=== PATIENT | female | born 1975 | race Caucasian/White ===

== ENCOUNTER 2022-05-27 09:30 | Outpatient (RCR) | payer OTHER, SELFPAY ==
[2022-05-25 10:49] VITALS: BP 110/78; PULSE 80; TEMP 37
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
--- NOTE | 2022-05-26 13:02 | PC.NURSE ---
Patient has a history of psychogenic seizures. She reportedly came out of the group as she did not want to be around others and was sitting at the kitchen table. Staff sat with her and walked with her to my office. Patient was clenching her hands and she was shaking her hands while seated in my office. She was able to make eye contact with me and was verbal. She appeared with increased anxiety and fearful with increased breathing. Lasted for about 5 minutes. Patient did not lose consciousness. Patient stated she was ok afterwards and went back to group. Breanna Aguilar NP, and program staff Ingrid were also in the room with the patient
--- NOTE | 2022-05-26 15:13 | PC.NURSE ---
Met with patient again r/t psychogenic seizure. She stated she is feeling better. I asked her if anyone could pick her up and give her a ride home. She stated there was no one who could drive her home and she felt fine to drive and wants to drive home. Stated she lives 5 minutes away. Stated she has been dealing with this for a long time. Continued to recommend she get a ride home however she did not want to do this. She stated she gets a warning prior to psychogenic seizure where her head feels like there is a heavy weight on it and feeling disconnected, and her hand will start to shake. She stated she feels like she is having a panic attack. I asked her to call us when she gets home. [facility] staff are aware including Universal Winding Machine Operator Breanna Lara NP, Mona Gomez, and Tanika Jesus, and Dr Sigala. Asked patient to call us when she got home. Patient called staff and let us know she was home.
--- NOTE | 2022-05-27 08:27 | PC.NURSE ---
Patient called [facility] staff this morning and stated because of the episode at the program yesterday she will be getting a ride to the program and will be here at 0930 today.
--- NOTE | 2022-05-27 14:46 | P.PNPSP_ITS ---
Subjective Subjective Date of Service: 05/27/22 Reason For Visit: SETH Guardianship: No Medical Problems Affecting Mental Status: Yes (psychogenic seizures) Interim History: Patient experienced seizure activity yesterday during program. Did not lose consciousness. Today describes her mood as ?I am okay today, but quiet ?. Continues with anxious affect. Reviewed most recent medication list that was sent from her outpatient provider. She reports that she takes the trazodone as needed, not daily for sleep. Takes the clonazepam 0.5 as needed, states that she takes it almost daily. Had not been consistent with the 500 mg daily of lamotrigine. Per advice of this fha underwriter, several days ago she resumed taking the medication, at 50 mg daily. She reports that although she had has been prescribed higher doses of BuSpar, she has been taking 10 mg b.i.d.. The it is that she is taking quetiapine 100 mg at bedtime. No SI, no safety concerns. Medication Compliance: Intermittent Side effects from medications: No Attending Groups: Yes Review of Systems Acute medical concerns: Yes Frequent psychogenic seizures. Medical Review of Systems: unchanged Review of Systems Review of Systems Yes all other systems are reviewed and are negative Constitutional: Reports no additional constitutional complaints Reports seizure-like activity (frequent) Mental Status Exam Mental Status Exam Narrative: NAD. No SI. Patient Appearance: Appropriate Patient Orientation: Person, Place, Time and Situation Level of Consciousness: Appropriate and Alert Patient Behavior: Appropriate, Cooperative and Poor Eye Contact (intermittent eye contact) Mood Description: Appropriate Affect Description: Depressed and Anxious Patient Cognition Impaired: No Ability to Follow Directions: Good Speech Pattern: Clear Memory Description: Intact Hallucinations: None Delusions: Not Present Thought Process: Intact Thought Content: positive for Intact Depressive Symptoms: Increased Anxiety, Crying Spells, Loss of Int. in Activity, Feelings of Guilt, Unhappiness, Increased Fatigue, Low Self Esteem and Difficulty Concentrating Judgement: Fair Diagnostics Vital Signs (24Hr): BMI result Body Mass Index 20.0 Assessment & Plan Assessment & Plan (1) Major depressive disorder, recurrent episode, moderate with mixed features: Status: Acute Code(s): F33.1 - Major depressive disorder, recurrent, moderate Assessment and Plan: Patient was advised to contact her outpatient psychiatrist/neurology person regarding titration of lamotrigine, as per outpatient provider notes, this medication has been prescribed due to seizure activity rather than psychiatric purposes. She states that she will do so. Reports that she is quiet today in groups, as she wants to listen. (2) Generalized anxiety disorder: Status: Acute Code(s): F41.1 - Generalized anxiety disorder (3) Alcohol dependence, uncomplicated: Status: Acute Code(s): F10.20 - Alcohol dependence, uncomplicated Plan 1. Continue with current [facility] plan of care. 2. Medication list updated in chart, as per patient report. 3. Follow-up as per protocol. 4. Due to seizure-like activity in program yesterday, a request for medical evaluation form will be sent to the V. Patient educated on: diagnosis, medication risk/benefits, substance abuse and therapeutic strategies Informed Consent: understands Reason for contiued partial hosp. stay Substantial Risk for: harm to self, inability to function, rapid decompensation and med/psych decompensation Certification I certify that partial hospital treatment is medically necessary due to the symptoms and problems resulting from the patient's mental illness and the failure to treat the patient at the partial hospital level of care would likely result in the patient requiring inpatient psychiatric care which could not be prevented at a less intensive level of care. Total time managing care of this patient today __20__ minutes. Discharge Plan Discharge Attending provider: Karl Sigala
--- NOTE | 2022-05-27 15:40 | HO.PHPIOP ---
case opened in treatment team
--- NOTE | 2022-05-30 08:51 | PC.NURSE ---
Denzel called and spoke to [facility] staff stating she was not able to come in today as she needs to attend to a situation.
--- NOTE | 2022-05-31 14:08 | HO.PHPIOP ---
The client called this morning and stated that she could not attend today or tomorrow because she has an appointment and a court date. I called and left a message in the afternoon for her to call me .
--- NOTE | 2022-06-01 16:12 | HO.PHPIOP ---
I called the client at [phone] and left a message regarding our policy of needing to be discharge and reassessed if a number of days are missed. I requested a return call and left my number.
== END 2022-05-27 23:59 | disposition home or self-care (01) ==
LOC: HO.PHPA 09:30
PROVIDERS: Visit Provider Psychiatry & Neurology Psychiatry
DX: F41.1 Generalized anxiety disorder (principal); F33.1 Major depressive disorder, recurrent, moderate; F10.20 Alcohol dependence, uncomplicated; Z79.899 Other long term (current) drug therapy
CPT/HCPCS: 90791; 90853

== ENCOUNTER 2025-04-13 19:35 | Emergency (ER) | payer OTHER, SELFPAY ==
--- OUTSIDE RECORDS SUMMARY | 2020-02-11 18:33 | XMS_ITS | Encounter Summary ---
Author Organization [facility] Address [address] [place] [address] Phone Care Team Providers Care Long Term Care Social Worker Name Role Phone Unknown, Unknown Primary Care Provider An hurtado Encounter Details Date Type Department Care Team (Late st Contact Info) Description 02/11/2020 7:33 PM EDT Hospital Encounter [facility] [address] [place] [address] Vicki Frankel CNP [address] [place] [address] Social History Tobacco Use Types Packs/Day Years Used Date Smoking Tobacco: Every Day Smokeless Tobacco: Never Alcohol Use Standard Drinks/Week Comments Yes 0 (1 standard drink = 0.6 oz pur e alcohol) occasionally Education Answer Date Recorded Are you interested in more education? Not on gayatri e 09/09/2022 Are you concerned about learning? Not on file 09/09/2022 No 09/09/2022 No 09/09/2022 Digital Access Answer Date Recorded No 10/08/2022 No 10/08/2022 No 10/08/2022 Reliable internet access at home? Not on file 10/08/2022 Device with a working camera? Not on file Comments Unknown Sex and Gender Information Value Date Recorded Sex Assigned at Not on file Legal Sex Female 7:12 PM EDT Gender Identity Not on file Sexual Orientation Not on file documented as of this encounter Plan of Treatment Not on file documented as of this encounter Procedures Procedure Name Priority Date/Time Associated Diagnosis Comments XR ORBITS SERIES Urgent/patient waiting 02/11/2020 7:54 PM EDT Facial injury, initial encounter documented in this encounter Results * XR Orbits Series (02/11/2020 7:54 PM EDT) Anatomical Region Laterality Modality Face Radiographic Candie ging 02/12/2020 9:09 AM EDT Impressions 02/12/2020 9:11 AM EDT No fracture is evident but the detail is poor. If there is ongoing clinical suspicion of an orbital fracture CT is recommended. POS [id number] Narrative 02/12/2020 9:11 AM EDT [address]' view is limited by rotation and the lateral orbital detail is further limited by overpenetration. No displaced fracture is apparent. The paranasal sinuses are clear. No opaque foreign bodies Procedure Note Zheng Hansen MD - 02/12/[address] view is limited by rotation and the lateral orbitaldetail is further limited by overpenetration. No displaced fracture is apparent. The paranasal sinuses are clear. No opaque foreign bodies IMPRESSION: No fracture is evident but the detail is poor. If there is ongoingclinical suspicion of an orbital fracture CT is recommended. POS [id number] Vicki Frankel POLYMERIZATION KETTLE OPERATOR IMG XR HEAD AND SHUNT SERIE S Final Result documented in this encounter Visit Diagnoses Not on filedocumented in this encounter Care Teams Long Term Care Social Worker Relationship Specialty Start Date End Date Unknown, Unknown, PCP - General 02/11/20 documented as of this encounter Additional Source Comments The information contained in this document represents components of the legal health record. It is not the complete legal health record.[facility]
--- OUTSIDE RECORDS SUMMARY | 2020-02-11 18:33 | XMS_ITS | Encounter Summary ---
Author Organization [facility] Address [address] [place] [address] Phone Care Team Providers Care Country Printer Name Role Phone Unknown, Unknown Primary Care Provider An hurtado Encounter Details Date Type Department Care Team (Late st Contact Info) Description 02/11/2020 7:33 PM EDT Hospital Encounter [facility] [address] [place] [address] Vicki Frankel CNP [address] [place] [phone] Social History Tobacco Use Types Packs/Day Years [...] Name Priority Date/Time Associated Diagnosis Comments XR NASAL BONES Urgent/patient waiting 02/11/2020 7:55 PM EDT Facial injury, initial encounter documented in this encounter Results * XR Nasal Bones (02/11/2020 7:55 PM EDT) Anatomical Region Laterality Modality Face Radiographic Candie ging 02/12/2020 9:11 AM EDT Impressions 02/12/2020 9:14 AM EDT Equivocal nondisplaced transverse nasal fracture POS [id number] Narrative 02/12/2020 9:14 AM EDT 3 views. No comparison One of the lateral view suggests that there is a nondisplaced transverse fracture of the midportion of the nasal bones. This is not seen on the other view and could be an artifact. No other bony injury is apparent; the and maxillary nasal spine seems intact and the adjacent paranasal sinuses are clear Procedure Note Zheng Hansen MD - 02/12/2020 3 views. No comparison One of the lateral view suggests that there is a nondisplaced transversefracture of the midportion of the nasal bones. This is not seen on theother view and could be an artifact. No other bony injury is apparent; the and maxillary nasal spine seemsintact and the adjacent paranasal sinuses are clear IMPRESSION: Equivocal nondisplaced transverse nasal fracture POS [id number] us Vicki Frankel FEED HOUSE SUPERVISOR IMG XR HEAD AND SHUNT SERIE S Final Result documented in this encounter Visit Diagnoses Not on filedocumented in this encounter Care Teams Country Printer Relationship Specialty Start Date End Date Unknown, Unknown, MD PCP - General 02/11/20 documented as of this encounter Additional Source Comments The information contained in this document represents components of the legal health record. It is not the complete legal health record.[facility]
--- OUTSIDE RECORDS SUMMARY | 2024-05-27 11:00 | XMS_ITS ---
Author Organization [facility] [employer] [facility] Address [address] [place] [phone] Care Team Providers Care Senior Case Manager Name Role Phone Brooke Avalos Primary Care Provider DEION Bentley Unavailable [phone] REASON FOR VISIT In office f/u Bipolar affective disorder, current episode hypomanic Encounters Encounter Location Date Provider Diagnosis [facility] [employer] [address] [address] 05/27/2024 DEION LUCIANO Plan Of Treatment No Information Progress Notes * Denzel GONSALES MDOB:[birth year] (49 yo F)Acc No.[id number]:05/27/2024 Patient: Dayna CHACONDenzel SANTACRUZ Provider: Homar LUCIANO D.O :1975 A ge:48 Y S ex:Female Date:05/27/2024 Address:[address] [place], [place] [id number] Pcp:Brooke Avalos Subjective: * Chief Complaints: * 1 . In office f/u Bipolar affective disorder, current episode hypomanic. * Medical History: Objective: * Vitals: Assessment: Plan: * Treatment: * * Electronic signature of BRET LUCIANO DO on 04/13/2025 at 11:23 PM EST Sign off status: Pending * Provider: Homar LUCIANO D.O Date: 0 05/27/2024 Generated for Ritchie Salazarg/Amina on: 1 06/13/2024 11:23 PM EST
--- OUTSIDE RECORDS SUMMARY | 2024-08-16 11:30 | XMS_ITS ---
Author Organization [facility] Address [address] [place] [phone] Care Team Providers Care Government Instructor Name Role Phone Brooke Avalos Primary Care Provider UnavailDEION Mast Unavailable [phone] REASON FOR VISIT Doxy f/u Bipolar affective disorder, current episode hypomanic Encounters Encounter Location Date Provider Diagnosis [facility] [employer] [facility] [address] [address] 08/16/2024 DEION LUCIANO Plan Of Treatment No Information Progress Notes * Denzel GONSALES MDOB:[birth year] (49 yo F)Acc No.[id number]:08/16/2024 Patient: Dayna CHACONDenzel SANTACRUZ Provider: Homar LUCIANO D.O :1975 A ge:49 Y S ex:Female Date:08/16/2024 Address:[address] [place], [place] [id number] Pcp:Brooke Avalos Subjective: * Chief Complaints: * 1 . Doxy f/u Bipolar affective disorder, current episode hypomanic. * Medical History: Objective: * Vitals: Assessment: Plan: * Treatment: * * Electronic signature of BRET LUCIANO DO on 04/13/2025 at 11:22 PM EST Sign off status: Pending * Provider: Homar LUCIANO D.O Date: 0 08/16/2024 Generated for Ritchie Salazarg/Amina on: 1 06/13/2024 11:22 PM EST
--- OUTSIDE RECORDS SUMMARY | 2024-12-18 06:30 | XMS_ITS ---
Author Organization [facility] Address [address] [place] [phone] Care Team Providers Care Retail Buyer Name Role Phone Brooke Avalos Primary Care Provider DEION Bentley Unavailable [phone] REASON FOR VISIT In office f/u Psychophysiological [...] Active Encounters Encounter Location Date Provider Diagnosis [facility] [employer] [address] [address] 12/18/2024 DEION LUCIANO Plan Of Treatment No Information Progress Notes * Denzel GONSALES:[birth year] (49 yo F)Acc No.[id number]:12/18/2024 Progress Notes Patient: Denzel HOSKINS Provider: Homar LUCIANO D.O :1975 A ge:49 Y S ex:Female Date:12/18/2024 Address:[address] [place] [phone] Pcp:Brooke Avalos Subjective: * Chief Complaints: * [...] 0 12/18/2024 Generated for Ritchie richmond/Kyle/Amina on: 06/13/2024 11:22 PM EST
[2025-04-13 20:11] VITALS: BP 124/80; PULSE 96; RESP 18; TEMP 36.4; O2SAT 97; BMI 20.1
--- NOTE | 2025-04-13 20:14 | ED.GENADULT ---
HPI - General Adult General Chief complaint: Abdominal Pain Stated complaint: Stomach Pain Time Seen by Provider: 04/13/25 23:41 Related Data Home Medications ?Medication ?Instructions ?Recorded ?Confirmed clonazepam 0.5 mg tablet 0.5 mg PO DAILY PRN Anxiety 05/30/22 05/30/22 lamotrigine 25 mg tablet (Lamictal) 50 mg PO DAILY 05/30/22 05/30/22 norethindrone acetate 5 mg tablet 0.5 tab PO DAILY 05/30/22 05/30/22 buspirone 30 mg tablet 1 tab PO BID 06/02/22 06/02/22 quetiapine 100 mg tablet 1 tab PO BEDTIME 06/02/22 06/02/22 Allergies Allergy/AdvReac Type Severity Reaction Status Date / Time fluoxetine (From Prozac) Allergy Vomiting Verified 04/13/25 20:14 Penicillins (PCN) Allergy Vomiting Verified 04/13/25 20:14 PMFSH Past Medical History Medical History Psychogenic nonepileptic seizure History of shingles Migraine Social History Social History Household Members: Friend(s) Household Members Other:: Sabine Cowart Patient Tobacco Use Status: Current everyday Tobacco user Tobacco use type: Cigarette Advance Directives: No Advance Directives Information Provided: No Physical Exam ED Vital Signs: Vital Signs - 24 hr 04/13/25 20:11 04/13/25 23:50 Temperature 97.6 F 98.4 F Pulse Rate 96 78 Respiratory Rate 18 16 Blood Pressure 124/80 113/75 Pulse Oximetry 97 97 Oxygen Delivery Method Room Air Room Air BMI result Body Mass Index 20.1 Course Course Course Narrative: Medical screening exam performed. Please refer to detailed history, exam, evaluation, and management by primary provider. History of umbilical hernia, now with increased pain over the past 3 days. Nausea but no vomiting. Admits to drinking wine this evening to help curb of the pain. Pain to palpation. No erythema to the skin on exam. Tenderness to palpation. Check labs. Medical Decision Making Lab Data 04/13/25 20:51 04/13/25 20:51 Labs: Lab Results 04/13/25 Range/Units 20:51 WBC 6.0 (4.8-10.8) X10*3/uL RBC 4.42 (4.20-5.50) X10*6/uL Hgb 14.7 (12.0-16.0) g/dl Hct 43.0 (37.0-47.0) % MCV 97.3 (80.0-98.0) fL MCH 33.3 H (27.0-33.0) pg MCHC 34.2 (31.0-35.0) g/dl RDW 13.4 (11.0-16.0) % Plt Count 270 (160-400) X10*3/uL MPV 9.7 (9.4-12.3) fL Immature Gran % (Auto) 0.2 (0.0-0.4) % Neut % (Auto) 55.7 (45-73) % Lymph % (Auto) 37.7 (20-40) % [place] % (Auto) 4.5 (2-11) % Eos % (Auto) 1.2 (0-4) % Baso % (Auto) 0.7 (0-2) % Lymph # (Auto) 2.3 (1.2-4.9) X10*3/uL [place] # (Auto) 0.3 (0.1-1.2) X10*3/uL Eos # (Auto) 0.1 (0.0-0.4) X10*3/uL Baso # (Auto) 0.0 (0.0-0.2) X10*3/uL Abs Immat Gran (auto) 0.01 (0.00-0.03) X10*3/uL Absolute Neuts (auto) 3.3 (2.0-8.3) x10*3/uL Absolute Nucleated RBC 0.000 (0.0-0.012) X10*3/uL Nucleated RBC % (auto) 0.0 (0.0-0.2) /100WBC Sodium 147 H (135-145) mmol/L Potassium 3.8 (3.3-5.1) mmol/L Chloride 109 H (96-108) mmol/L Carbon Dioxide 26 (22-29) mmol/L Anion Gap 16 (12-20) BUN 7 L (9-16) mg/dL Creatinine 0.75 (0.5-1.4) mg/dL Estim Creat Clear Calc 77.6 Estimated GFR > 60 Random Glucose 130 H (60-115) mg/dL Lactic Acid 1.7 (0.5-2.0) mmol/L Calcium 9.7 (8.4-10.2) mg/dL Total Bilirubin 0.4 (0.0-1.0) mg/dL AST 42 H (5-31) U/L ALT 43 H (0-31) U/L Alkaline Phosphatase 79 (39-117) U/L Total Protein 8.2 H (6.5-8.0) g/dL Albumin 5.2 H (3.5-5.0) g/dL Lipase 32 (8-78) U/L Beta HCG, Quant 3 mIU/mL Urine Color Yellow Urine Appearance Clear Urine pH 6.5 (5.0-9.0) Ur Specific [place] <= 1.005 (1.005-1.025) Urine Protein Negative (Neg-Trace) mg/dL Urine Glucose (UA) Negative (Negative) mg/dL Urine Ketones Negative (Negative) mg/dL Urine Blood Negative (Negative) Urine Nitrite Negative (Negative) Ur Leukocyte Esterase Negative (Negative) Discharge Plan Discharge Clinical Impression: Left against medical advice, Hernia, umbilical Patient Disposition: Home, Self-Care Instructions: Umbilical Hernia (ED), Against Medical Advice (ED) Additional Instructions: If you change your mind come back at any time Prescriptions: No Action clonazepam 0.5 mg Tablet 0.5 mg PO DAILY PRN (Reason: Anxiety) lamotrigine [Lamictal] 25 mg Tablet 50 mg PO DAILY Patient Comments: Patient was not taking 250 mg BID as prescribed. Last took one week ago and patient reports missing man doses. Breanna starting 50 mg daily and encouraged patient to talk to her prescriber. norethindrone acetate 5 mg tablet 0.5 tab PO DAILY quetiapine 100 mg tablet 1 tab PO BEDTIME Rx Instructions: Last filled 11/16/21, 30 day supply. buspirone 30 mg tablet 1 tab PO BID Rx Instructions: Last filled 11/16/21 for 30 day supply per pharmacy. Referrals: Vasquez Corrales MD [Physician, General Surgery] - 04/14/25 Stand Alone Forms: Against Medical Advice Print Language: Italian
[2025-04-13 20:59] LABS: MANUAL DIFF FLAG NO
[2025-04-13 21:04] LABS: Appearance Urine Clear; Glucose Urine UA Negative (Negative); PH 6.5 (5.0-9.0); Specific Gravity - Urine <= 1.005 (1.005-1.025)
[2025-04-13 21:05] LABS: Hematocrit 43.0 % (37.0-47.0); Hemoglobin 14.7 g/dl (12.0-16.0); Imm Gran Abs Auto 0.01 X10*3/uL (0.00-0.03); Imm Gran Pct Auto 0.2 % (0.0-0.4); Lymphocytes Absolute Auto 2.3 X10*3/uL (1.2-4.9); Mean Corpuscular HGB Conc 34.2 g/dl (31.0-35.0); Mean Corpuscular Hemoglobin 33.3 pg (27.0-33.0); Mean Corpuscular Volume 97.3 fL (80.0-98.0); NRBC Abs Auto 0.000 X10*3/uL (0.0-0.012); NRBC Pct Auto 0.0 /100WBC (0.0-0.2); Platelet Count 270 X10*3/uL (160-400); Red Blood Count 4.42 X10*6/uL (4.20-5.50); White Blood Count 6.0 X10*3/uL (4.8-10.8)
[2025-04-13 21:20] LABS: Alanine Aminotransferase 43 U/L (0-31); Albumin Level 5.2 g/dL (3.5-5.0); Alkaline Phosphatase 79 U/L (39-117); Anion Gap 16 (12-20); Aspartate Amino Transferase 42 U/L (5-31); Blood Urea Nitrogen 7 mg/dL (9-16); Calcium 9.7 mg/dL (8.4-10.2); Carbon Dioxide 26 mmol/L (22-29); Chloride 109 mmol/L (96-108); Creatinine Clr Calc Pharmacy 77.6; Estimated Glomerular Filt Rate > 60; Lipase 32 U/L (8-78); Potassium 3.8 mmol/L (3.3-5.1); Sodium 147 mmol/L (135-145); Total Protein 8.2 g/dL (6.5-8.0)
--- OUTSIDE RECORDS SUMMARY | 2025-04-13 23:23 | XMS_ITS ---
Author Name [facility] Organization Unknown History of Medication Use Medication Directions Dispensed Refills Start Date End Date Stat levETIRAcetam (KEPPRA XR) 750 MG 24 hr tablet Take 2 tablets (1,500 mg total) by mouth daily. 01/05/2024 01/16/2024 active cariprazine (Vraylar) 1.5 MG caspule Take 1 capsule (1.5 mg total) by mouth daily. 05/22/2023 active cariprazine (Vraylar) 1.5 MG caspule Take 2 capsules (3 mg total) by mouth daily. 05/22/2023 active levETIRAcetam (KEPPRA) 500 MG tablet Take 1 tablet am 1 tablet pm x 7D; 1 tablet am 2 tablets pm x 7D; then 2 tablets am 2 tablets pm 01/04/2023 10/16/2023 active lamoTRIgine ER 250 MG Tablet SR 24 hr Take 250 mg by mouth nightly. 11/04/2022 10/16/2023 active lamoTRIgine ER 200 MG Tablet SR 24 hr Take 200 mg by mouth daily. FOR EMU TAPER 10/26/2022 suspended QUEtiapine (SEROquel) 100 MG tablet Take 1 tablet (100 mg total) by mouth nightly. 06/26/2022 active ibuprofen (MOTRIN) 600 MG tablet Take 1 tablet (600 mg total) by mouth as needed. 04/22/2022 active norethindrone (AYGESTIN) 5 MG tablet Take 1 tablet (5 mg total) by mouth daily. 04/22/2022 active norethindrone (AYGESTIN) 5 MG tablet TAKE 1/2 (ONE-HALF) TABLET BY MOUTH ONCE DAILY 04/22/2022 active Tylenol 325 MG tablet TAKE 2 TABLETS BY MOUTH EVERY 6 HOURS NEEDED FOR PAIN . DO NOT EXCEED 4000MG PER 24 HOURS 04/22/2022 active clonazePAM (KlonoPIN) 0.5 MG tablet Take 1 tablet (0.5 mg total) by mouth as needed. 12/15/2021 active lamoTRIgine ER 250 MG Tablet SR 24 hr 200 mg. 12/15/2021 suspen ded busPIRone (BUSPAR) 10 MG tablet Take 1 tablet (10 mg total) by mouth 2 (two) times a day. active Allergies Allergen Reaction Severity Comment Documented Date Source Statu s FLUOXETINE OTHER (SEE COMMENTS) 06/28/2022 [facility] active PENICILLINS GI INTOLERANCE/NAUSEA/VOMITIN G 12/24/2019 [facility] active Problems Problem Status Onset Date Problem Type Date of Resoluti on Source Seizure-like activity active 2022-10-31 ProblemAct [facility] Encounters Encounter Type Encounter Reason Primary Diagnosis Location Date Ambulatory Unspecified convulsions Unspecified convulsions [facility] 01/05/2024 Ambulatory Unspecified convulsions Unspecified convulsions [facility] 07/18/2023 Ambulatory Unspecified convulsions Unspecified convulsions [facility] 01/03/2023 Inpatient Unspecified convulsions [facility] 10/31/2022 Ambulatory Unspecified convulsions [facility] 06/28/2022 Care Team Organization Name Specialty Phone Email Start Date End Da te [facility] PROVIDER,GENERIC Primary Care 06/28/202207/31 [facility] Generic Provider Primary Care 05/10/202206/28
--- OUTSIDE RECORDS SUMMARY | 2025-04-13 23:23 | XMS_ITS | Encounter Summary ---
Author Organization [facility] Address [address] [place] [address] Care Team Providers Care Branch Office Administrator Name Role Phone Martin Tovar Primary Care Provider [phone] Encounter Details Date Type Department Care Team (Late st Contact Info) Description 02/05/2020 [facility]ft Message [facility] [address] [place] [phone] Gildardo Thomas MD [address] [place] [address] [place] [address] RE: Test Results Question Social History Tobacco Use Types Packs/Day Years Used Date Smoking Tobacco: Every Day Cigarettes Smokeless Tobacco: Never Alcohol Use Standard Drinks/Week Comments Yes 2 (1 standard drink = 0.6 oz pur e alcohol) Comments Unknown Sex and Gender Information Value Date Recorded Sex Assigned at Female 05/11/2020 10:00 AM EST Legal Sex Female 12:08 PM EDT Gender Identity Female 05/11/2020 10:00 AM EST Sexual Orientation Straight 05/11/2020 10 :00 AM EST documented as of this encounter Plan of Treatment Not on file documented as of this encounter Visit Diagnoses Not on filedocumented in this encounter Care Teams Branch Office Administrator Relationship Specialty Start Date End Date Martin Tovar [address] [facility] [address] [place] [address] PCP - General Internal Medicine 11/11/19 documented as of this encounter
--- OUTSIDE RECORDS SUMMARY | 2025-04-13 23:23 | XMS_ITS | Clinical Summary ---
Author Organization [facility] Address [address] [facility] [address] [place] [address] Phone Care Team Providers Care Program And Research Coordinator Name Role Phone Unknown, Unknown Primary Care Provider Unavasheridan lable Allergies Active Allergy Reactions Criticality Noted Date Comments Penicillins 02/11/2020 Medications busPIRone (BUSPAR) 10 MG tablet Take 10 mg by mouth 4 (four) times a day. Active BRIVIACT 100 mg tablet TAKE 1 TABLET BY MOUTH TWICE DAILY INCREASE TO THIS DOSE DIRECTED PER TITRATION SCHEDULE 0 Active VIMPAT 200 mg Tab Take 200 mg by mouth 2 (two) times a day. 0 Active hydrOXYzine (ATARAX) 25 MG tablet TAKE 1 TABLET BY MOUTH 3 TIMES A DAY NEEDED FOR ANXIETY 0 Active lamoTRIgine (LAMICTAL XR) 250 mg TR24 Take 500 mg by mouth daily. 0 Active Social History Tobacco Use Types Packs/Day Years [...] on file Sexual Orientation Not on file Last Filed Vital Signs Vital Sign Reading Time Taken Comments Blood Pressure 125/78 02/11/2020 7:21 PM EDT Pulse 92 02/11/2020 7:21 PM EDT Temperature 37.1 C (98.7 F) 02/11/2020 7:21 PM EDT Respiratory Rate - - Oxygen Saturation 98% 02/11/2020 7:21 PM EDT Inhaled Oxygen Concentration - - Weight 54.4 kg (120 lb) 02/11/2020 7:21 PM EDT Height 163.8 cm (5' 4.5 ) 02/11/2020 7:21 PM EDT Body Mass Index 20.28 02/11/2020 7:21 PM EDT Plan of Treatment Health Maintenance Due Date Last Done Comments Adult Td,Tdap Booster 1975 LIPID PANEL 1974 DEPRESSION SCREENING 1986 SMOKING Hx and SMOKELESS TOBACCO SCREENING 08/06/1987 HEPATITIS C SCREENING 1992 HIV ONE-TIME SCREENING (18-6 5 YEARS) 1992 PNEUMOCOCCAL VACCINES (50+ years) (1 of 2 - PCV) 1993 PAP SMEAR 08/06/1995 MAMMOGRAM 2014 COLOGUARD 08/06/2019 COLONOSCOPY 08/06/2019 COLORECTAL CANCER SCREENING 08/06/2019 FIT TEST 08/06/2019 FOBT 08/06/2019 SIGMOIDOSCOPY 08/06/2019 VIRTUAL COLONOSCOPY 08/06/2019 ZOSTER VACCINES (1 of 2) 2024 INFLUENZA VACCINE (#1) 2024 COVID-19 VACCINE (3 - 2024-2 6 season) 2025 01/11/2021, 12/13/2020 RSV VACCINE (1 - 1-dose 75+ series) 2049 HEPATITIS A VACCINES Aged Out No long er eligible based on patient's age to complete this topic HIB VACCINES Aged Out No longer eligi ble based on patient's age to complete this topic MENINGOCOCCAL VACCINES (ACWY) Aged Out No longer eligible based on patient's age to complete this topic MENINGOCOCCAL VACCINES (B) Aged Out N o longer eligible based on patient's age to complete this topic Medical Devices Not on file Insurance [address] [place] [address] [place] [address] [place] [address] [facility] [address] [place] [address] [place] [address] [place] [address] [place] [address] [place] [address] Care Teams Program And Research Coordinator Relationship Specialty Start Date End Date Unknown, Unknown, PCP - General 02/11/20 Additional Source Comments The information contained in this document represents components of the legal health record. It is not the complete legal health record.[facility]
--- OUTSIDE RECORDS SUMMARY | 2025-04-13 23:23 | XMS_ITS | Encounter Summary ---
Author Organization [facility] Address [address] [place] [address] Care Team Providers Care Head Of Mathematics Name Role Phone Martin Tovar Primary Care Provider [phone] Reason for Visit * Reason Onset Date Comments EMU 04/20/2020 jeremy increased seizures 04/20/2020 Encounter Details Date Type Department Care Team (Late st Contact Info) Description 04/20/2020 Telephone [facility] [address] [place] [phone] Telephone Intake, Staff EMU (jeremy); increased seizures Social History Tobacco Use Types Packs/Day Years [...] AM EST documented as of this encounter Miscellaneous Notes * Telephone Encounter - Gildardo Thomas MD - 04/20/2020 9:54 PM EST Denzel gave verbal permission for me to speak to Mich, and was present on speaker phone throughout.Denzel was having a migraine and didn't want to talk. Mich states that in the last few days, Denzel has been having more breakthrough convulsive seizures during the day (1-2/day), typically 12-4 pm, whereas they were previously much more prevalent at night and not convulsive. She describes them as increasingly tonic-clonic. Unclear reason for this uptick in sz activity. Denzel is currently still onmedical leave, and has been fully adherent to her medications. She is currently taking: LTG ER 500 daily BRV 100 BID (?sometimes taking as 50 QID to minimize side effects) LCM 50/50/100 (slowly tapering down due to SEs) CLB 5 at bedtime, just increased to 5 BID. Also taking Zoloft 100 daily, norethindrone 2.5 daily. Drinking alcohol 1-2 drinks/week, which may have caused some side effects in conjunction with the CLB. They would like to again plan for the scheduled [facility] EMU admission, which I agree with. I actually suggested going to the [facility] for urgent admission to the neurology service for Phase 1 monitoring and rapid medication titration (firm recommendation). Denzel would like to hold off on this until after the holidays. I let her know my concernsabout continuing to push back this admission, and the risks of having continued convulsive seizures, including SUDEP. The admission is also critical for planning for surgical treatment options. We will see if it is possible to arrange for an urgent scheduled admission in the next 1-2 weeks. If thisis not an option, again would strongly consider going to ED for urgent admission. In the meantime, would continue to increase Onfi/CLB to 5/10, and then 10/10 after 1 week, and then further up as needed. Advised to abstain from alcohol altogether. * Telephone Encounter - Xochitl Lynn - 04/20/2020 3:18 PM EST Mich is calling to follow up regarding EMU scheduling. María stated multiple messages have been left from patient however has not heard back. María also wanted to make Dr. Thomas aware patient has been having an increase of breakthrough convulsive seizures. documented in this encounter Plan of Treatment Not on file documented as of this encounter Visit Diagnoses Diagnosis Partial idiopathic epilepsy with seizures of localized onset, intractable, without status epilepticus- Primary documented in this encounter Care Teams Head Of Mathematics Relationship Specialty Start Date End Date Martin Tovar [address] [place] [address] PCP - General Internal Medicine 11/11/19 documented as of this encounter
--- OUTSIDE RECORDS SUMMARY | 2025-04-13 23:23 | XMS_ITS | Patient Health Record ---
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 Name Role Phone Junaiddallin Brooke Primary Care Provider Unavailab DEION Fiore Unavailable [phone] Sherry Khan Unavailable [phone] Allergies Allergen (clinical drug ingredient) Drug/Non Drug Allergy documented on EMR Reaction Allergy Type Onset Date Status Information temporarily unavailable Penicillamine Unknown Drug Allergy Active Reason For Referral No Information Medications Medication SIG (Take, Route, Frequency, Duration) Notes Start Date End Date Status clonazePAM 0.5 MG 1 tablet Orally Once a day as needed for anxiety; Duration: 90 days 03/20/2025 Active ARIPiprazole 5 MG 1 tablet Orally Once a day; Duration: 30 days Active Nayzilam 5 MG/0.1ML 1 spray as needed Na hugo Twice a day Active lamoTRIgine ER 250 MG 1 tablet Orally tw ice a day Active Keppra XR 750 MG 1 tablet Orally twic e a day Active traZODone HCl 50 MG 1/2-1 tablet at bedt mitali as needed for insomnia Orally Once a day; Duration: 30 days Active Ibuprofen 600 MG 1 tablet with food o r milk as needed Orally Three times a day Active Rizatriptan Benzoate 5 MG 1 tablet as ne eded at first sign of migraine. if symptoms persist or return, may repeat dose after >2 hours if not resolved Orally; Duration: 30 days Active Social History Tobacco Use: Social History Observation Description Date Details (start date - stop date) Current Smoker NA - NA Tobacco Use/Smoking Question Answer Notes Are you a current smoker Tobacco use other than smoking: Question Answer Notes Are you an other tobacco user? No Section Notes: 1/2 pack per day smoker alcohol- a few times per week, 1-2 glasses of wine with dinner, when younger she would drink more marijiuana rarely no illicits 1/2 pack per day smoker alcohol- a few times per week, 1-2 glasses of wine with dinner, when younger she would drink more marijiuana rarely no illicits 1/2 pack per day smoker alcohol- a few times per week, 1-2 glasses of wine with dinner, when younger she would drink more marijiuana rarely no illicits 1/2 pack per day smoker alcohol- a few times per week, 1-2 glasses of wine with dinner, when younger she would drink more marijiuana rarely no illicits 1/2 pack per day smoker alcohol- a few times per week, 1-2 glasses of wine with dinner, when younger she would drink more marijiuana rarely no illicits 1/2 pack per day smoker alcohol- a few times per week, 1-2 glasses of wine with dinner, when younger she would drink more marijiuana rarely no illicits 1/2 pack per day smoker alcohol- a few times per week, 1-2 glasses of wine with dinner, when younger she would drink more marijiuana rarely no illicits 1/2 pack per day smoker alcohol- a few times per week, 1-2 glasses of wine with dinner, when younger she would drink more marijiuana rarely no illicits 1/2 pack per day smoker alcohol- a few times per week, 1-2 glasses of wine with dinner, when younger she would drink more marijiuana rarely no illicits 1/2 pack per day smoker alcohol- a few times per week, 1-2 glasses of wine with dinner, when younger she would drink more marijiuana rarely no illicits 1/2 pack per day smoker alcohol- a few times per week, 1-2 glasses of wine with dinner, when younger she would drink more marijiuana rarely no illicits 1/2 pack per day smoker alcohol- a few times per week, 1-2 glasses of wine with dinner, when younger she would drink more marijiuana rarely no illicits 1/2 pack per day smoker alcohol- a few times per week, 1-2 glasses of wine with dinner, when younger she would drink more marijiuana rarely no illicits 1/2 pack per day smoker alcohol- a few times per week, 1-2 glasses of wine with dinner, when younger she would drink more marijiuana rarely no illicits 1/2 pack per day smoker alcohol- a few times per week, 1-2 glasses of wine with dinner, when younger she would drink more marijiuana rarely no illicits 1/2 pack per day smoker alcohol- a few times per week, 1-2 glasses of wine with dinner, when younger she would drink more marijiuana rarely no illicits 1/2 pack per day smoker alcohol- a few times per week, 1-2 glasses of wine with dinner, when younger she would drink more marijiuana rarely no illicits 1/2 pack per day smoker alcohol- a few times per week, 1-2 glasses of wine with dinner, when younger she would drink more marijiuana rarely no illicits 1/2 pack per day smoker alcohol- a few times per week, 1-2 glasses of wine with dinner, when younger she would drink more marijiuana rarely no illicits 1/2 pack per day smoker alcohol- a few times per week, 1-2 glasses of wine with dinner, when younger she would drink more marijiuana rarely no illicits 1/2 pack per day smoker alcohol- a few times per week, 1-2 glasses of wine with dinner, when younger she would drink more marijiuana rarely no illicits 1/2 pack per day smoker alcohol- a few times per week, 1-2 glasses of wine with dinner, when younger she would drink more marijiuana rarely no illicits 1/2 pack per day smoker alcohol- a few times per week, 1-2 glasses of wine with dinner, when younger she would drink more marijiuana rarely no illicits 1/2 pack per day smoker alcohol- a few times per week, 1-2 glasses of wine with dinner, when younger she would drink more marijiuana rarely no illicits 1/2 pack per day smoker alcohol- a few times per week, 1-2 glasses of wine with dinner, when younger she would drink more marijiuana rarely no illicits 1/2 pack per day smoker alcohol- a few times per week, 1-2 glasses of wine with dinner, when younger she would drink more marijiuana rarely no illicits 1/2 pack per day smoker alcohol- a few times per week, 1-2 glasses of wine with dinner, when younger she would drink more marijiuana rarely no illicits Problems Problem Type SNOMED Code ICD Code Onset Dates Problem Status W/U Status Risk Notes Problem Information temporarily unavailable Generalized anxiety disorder (F41.1) Active confirmed Problem Information temporarily unavailable Migraine (G43.909) Active confirmed Problem Information temporarily unavailable Moderate episode of recurrent major depressive disorder (F33.1) Active confirmed Problem Information temporarily unavailable Psychophysiological insomnia (F51.04) Active confirmed Problem Information temporarily unavailable Panic disorder [episodic paroxysmal anxiety] (F41.0) Active confirmed Problem Information temporarily unavailable Psychogenic nonepileptic seizure (F44.5) Active confirmed Problem Information temporarily unavailable Bipolar affective disorder, current episode hypomanic (F31.0) Active confirmed Vital Signs Heart Rate 78 /min 12/27/2024 Blood pressure diastolic 76 mm Hg 12/27/2024 Height 65 in 01/24/2025 Blood pressure systolic 128 mm Hg 12/27/2024 Weight 115 lbs 01/24/2025 BMI 19.13 kg/m2 01/24/2025 Encounters Encounter Location Date Provider Diagnosis Replaced By [facility] [address] [address] 05/07/2024 DEION DEGRUSH Generalized anxiety disorder F41.1 ; Psychogenic nonepileptic seizure F44.5 ; Panic disorder [episodic paroxysmal anxiety] F41.0 ; Psychophysiological insomnia F51.04 and Bipolar affective disorder, current episode hypomanic F31.[address] [address] 07/12/2024 DEION DEGRUSH Generalized anxiety disorder F41.1 ; Psychogenic nonepileptic seizure F44.5 ; Panic disorder [episodic paroxysmal anxiety] F41.0 ; Psychophysiological insomnia F51.04 and Bipolar affective disorder, current episode hypomanic F31.[address] [address] 08/19/2024 DEION DEGRUSH Generalized anxiety disorder F41.1 ; Psychogenic nonepileptic seizure F44.5 ; Panic disorder [episodic paroxysmal anxiety] F41.0 ; Psychophysiological insomnia F51.04 and Bipolar affective disorder, current episode hypomanic F31.0 Replaced By [facility], [address] [address] 11/18/2024 [facility] Generalized anxiety disorder F41.1 ; Psychogenic nonepileptic seizure F44.5 ; Panic disorder [episodic paroxysmal anxiety] F41.0 ; Psychophysiological insomnia F51.04 and Bipolar affective disorder, current episode hypomanic F31.0 Replaced By [facility], [address] [address] 12/27/2024 Sherry Pamceleste Generalized anxiety disorder F41.1 ; Migraine G43.909 ; Psychogenic nonepileptic seizure F44.5 ; Panic disorder [episodic paroxysmal anxiety] F41.0 ; Psychophysiological insomnia F51.04 and Bipolar affective disorder, current episode hypomanic F31.0 Replaced By [facility], [address] [address] 01/24/2025 Sherry Khan Generalized anxiety disorder F41.1 ; Migraine G43.909 ; Psychogenic nonepileptic seizure F44.5 ; Panic disorder [episodic paroxysmal anxiety] F41.0 ; Psychophysiological insomnia F51.04 and Bipolar affective disorder, current episode hypomanic F31.0 Replaced By [facility], [address] [address] 04/25/2024 [facility], [address] [address] 05/27/2024 [facility], [address] [address] 08/16/2024 [facility], [address] [address] 08/19/2024 [facility], [address] [address] 11/18/2024 [facility], [address] [address] 11/29/2024 [facility], [address] [address] 12/27/2024 [facility], [address] [address] 04/25/2024 [facility], [address] [place] [phone] 04/25/2024 [facility], [address] [place] [address] 07/21/2024 [facility], [address] [place] [address] 07/23/2024 [facility], [address] [address] 10/15/2024 [facility], [address] [place] [phone] 11/19/2024 [facility], [address] [place] [phone] 11/19/2024 [facility], [address] [address] 11/21/2024 [facility], [address] [address] 11/28/2024 [facility], [address] [place] [address] 12/10/2024 [facility], [address] [place] [phone] 12/18/2024 [facility], [address] [place] [phone] 12/19/2024 [facility], [address] [address] 12/31/[facility] [address] [place] [address] 01/01/2025 Sherry Khan [address] [place] [address] 01/01/2025 Sherry Khan [address] [place] [address] 03/24/2025 Sherry Khan Assessments Encounter Date Diagnosis (ICD Code) Assessment Notes Treatment Notes Treatment Clinical Notes Section Notes 05/07/2024 Generalized anxiety disorder (ICD-10 - F41.1) Anxiety increased, will need to address her current mood state see below. Using clonazepam appropriately however. Denzel is a 48 yo woman with 20+ years of episodes that from the data that is available to me appear to be non-epilept ic, currently being treated for epilepsy in [facility], and in treatment wiht myself for bipolar disorder and anxiety. 07/12/2024 Generalized anxiety disorder (ICD-10 - F41.1) Anxiety increased, will need to address her current mood state see below. Using clonazepam appropriately however. Denzel is a 48 yo woman with 20+ years of episodes that from the data that is available to me appear to be non-epilept ic, currently being treated for epilepsy in [facility], and in treatment wiht myself for bipolar disorder and anxiety. 08/19/2024 Generalized anxiety disorder (ICD-10 - F41.1) Anxiety increased, will need to address her current mood state see below. Using clonazepam appropriately however. Denzel is a 49 yo woman with 20+ years of episodes that from the data that is available to me appear to be non-epilept ic, currently being treated for epilepsy in [facility], and in treatment wiht myself for bipolar disorder and anxiety. 11/18/2024 Generalized anxiety disorder (ICD-10 - F41.1) Anxiety increased, will need to address her current mood state see below. Using clonazepam appropriately however. Denzel is a 49 yo woman with 20+ years of episodes that from the data that is available to me appear to be non-epilept ic, currently being treated for epilepsy in [facility], and in treatment wiht myself for bipolar disorder and anxiety. 12/27/2024 Generalized anxiety disorder (ICD-10 - F41.1) Anxiety increased, will need to address her current mood state see below. Using clonazepam appropriately however. Denzel is a 49 yo woman with 20+ years of episodes that from the data that is available to me appear to be non-epilept ic, currently being treated for epilepsy in [facility], and in treatment wiht myself for bipolar disorder and anxiety. 12/27/2024 Migraine (ICD-10 - G43.909) Patient reports recent increase in migraines. She is currently having about 1/week but they last a couple of days at a time. She previously had benefit from rizatriptan for acute migraine. We discussed restarting this at first onset of migraine. Common side effects reviewed. If rizatriptan not effective, could consider alternative triptan or Nurtec. We did spend time discussing preventative options as well. We discussed an SNRI may be beneficial from both a depression/anxie ty and migraine prevention standpoint, however would be concerned that this may lead to increase in erica. Alternatively she may benefit from a CGRP for prevention. Ultimately, as plan to increase Abilify today as mentioned above we will hold off on any additional preventative medications today. Will rediscuss at next visit. Denzel is a 49 yo woman with 20+ years of episodes that from the data that is available to me appear to be non-epilept ic, currently being treated for epilepsy in [facility], and in treatment wiht myself for bipolar disorder and anxiety. 01/24/2025 Generalized anxiety disorder (ICD-10 - F41.1) Using clonazepam appropriately as needed for anxiety. 01/24/2025 Migraine (ICD-10 - G43.909) Patient reports interval reduction in frequency of migraines. She has tried rizatriptan which has been helpful for reducing duration of migraine. I did advise she can repeat dose after 2 hours if migraine not resolved, which she will try. Will continue to monitor. 12/27/2024 Psychogenic nonepileptic seizure (ICD-10 - F44.5) She is getting treatment at an epilepsy center in [place], will defer to their treatment plan. She does report having self-discontinue d Keppra recently after running out of refills. Advise she speak to provider in [place] about whether or not she should continue this medication and for refills. Denzel is a 49 yo woman with 20+ years of episodes that from the data that is available to me appear to be non-epilept ic, currently being treated for epilepsy in [facility], and in treatment wiht myself for bipolar disorder and anxiety. 01/24/2025 Psychogenic nonepileptic seizure (ICD-10 - F44.5) She is getting treatment at an epilepsy center in [place], will defer to their treatment plan. 11/18/2024 Psychogenic nonepileptic seizure (ICD-10 - F44.5) Lamotrigine XR 125mg twice daily (take 1 tab of 25mg and 1 tab of 100mg twice daily) She is getting treatment at an epilepsy center in [place], will defer to their treatment plan Denzel is a 49 yo woman with 20+ years of episodes that from the data that is available to me appear to be non-epilept ic, currently being treated for epilepsy in [facility], and in treatment wiht myself for bipolar disorder and anxiety. 08/19/2024 Psychogenic nonepileptic seizure (ICD-10 - F44.5) Lamotrigine XR 125mg twice daily (take 1 tab of 25mg and 1 tab of 100mg twice daily) She is getting treatment at an [place] center [place], will defer to their treatment plan Denzel is a 49 yo woman with 20+ years of episodes that from the data that is available to me appear to be non-epilept ic, currently being treated for epilepsy in [facility], and in treatment wiht myself for bipolar disorder and anxiety. 07/12/2024 Psychogenic nonepileptic seizure (ICD-10 - F44.5) Lamotrigine XR 125mg twice daily (take 1 tab of 25mg and 1 tab of 100mg twice daily) She is getting treatment at an epilepsy center in [place], will defer to their treatment plan Denzel is a 48 yo woman with 20+ years of episodes that from the data that is available to me appear to be non-epilept ic, currently being treated for epilepsy in [facility], and in treatment wiht myself for bipolar disorder and anxiety. 05/07/2024 Psychogenic nonepileptic seizure (ICD-10 - F44.5) Lamotrigine XR 125mg twice daily (take 1 tab of 25mg and 1 tab of 100mg twice daily) She is getting treatment at an epilepsy center [place], will defer to their treatment plan Denzel is a 48 yo woman with 20+ years of episodes that from the data that is available to me appear to be non-epilept ic, currently being treated for epilepsy in [facility], and in treatment wiht myself for bipolar disorder and anxiety. 05/07/2024 Panic disorder [episodic paroxysmal anxiety] (ICD-10 - F41.0) Denzel is a 48 yo woman with 20+ years of episodes that from the data that is available to me appear to be non-epilept ic, currently being treated for epilepsy in [facility], and in treatment wiht myself for bipolar disorder and anxiety. 07/12/2024 Panic disorder [episodic paroxysmal anxiety] (ICD-10 - F41.0) Denzel is a 48 yo woman with 20+ years of episodes that from the data that is available to me appear to be non-epilept ic, currently being treated for epilepsy in [facility], and in treatment wiht myself for bipolar disorder and anxiety. 08/19/2024 Panic disorder [episodic paroxysmal anxiety] (ICD-10 - F41.0) Denzel is a 49 yo woman with 20+ years of episodes that from the data that is available to me appear to be non-epilept ic, currently being treated for epilepsy in [facility], and in treatment wiht myself for bipolar disorder and anxiety. 11/18/2024 Panic disorder [episodic paroxysmal anxiety] (ICD-10 - F41.0) Denzel is a 49 yo woman with 20+ years of episodes that from the data that is available to me appear to be non-epilept ic, currently being treated for epilepsy in [facility], and in treatment wiht myself for bipolar disorder and anxiety. 12/27/2024 Panic disorder [episodic paroxysmal anxiety] (ICD-10 - F41.0) Denzel is a 49 yo woman with 20+ years of episodes that from the data that is available to me appear to be non-epilept ic, currently being treated for epilepsy in [facility], and in treatment wiht myself for bipolar disorder and anxiety. 01/24/2025 Panic disorder [episodic paroxysmal anxiety] (ICD-10 - F41.0) 01/24/2025 Psychophysiological insomnia (ICD-10 - F51.04) She will continue with trazodone as needed for insomnia. 11/18/2024 Psychophysiological insomnia (ICD-10 - F51.04) Denzel is a 49 yo woman with 20+ years of episodes that from the data that is available to me appear to be non-epilept ic, currently being treated for epilepsy in [facility], and in treatment wiht myself for bipolar disorder and anxiety. 12/27/2024 Psychophysiological insomnia (ICD-10 - F51.04) Patient reports difficulty with waking overnight and inability to fall back asleep. This is likely related to current increase of anxiety. She can continue with trazodone as needed. Denzel is a 49 yo woman with 20+ years of episodes that from the data that is available to me appear to be non-epilept ic, currently being treated for epilepsy in [facility], and in treatment wiht myself for bipolar disorder and anxiety. 08/19/2024 Psychophysiological insomnia (ICD-10 - F51.04) Denzel is a 49 yo woman with 20+ years of episodes that from the data that is available to me appear to be non-epilept ic, currently being treated for epilepsy in [facility], and in treatment wiht myself for bipolar disorder and anxiety. 05/07/2024 Psychophysiological insomnia (ICD-10 - F51.04) Denzel is a 48 yo woman with 20+ years of episodes that from the data that is available to me appear to be non-epilept ic, currently being treated for epilepsy in [facility], and in treatment wiht myself for bipolar disorder and anxiety. 07/12/2024 Psychophysiological insomnia (ICD-10 - F51.04) Denzel is a 48 yo woman with 20+ years of episodes that from the data that is available to me appear to be non-epilept ic, currently being treated for epilepsy in [facility], and in treatment wiht myself for bipolar disorder and anxiety. 05/07/2024 Bipolar affective disorder, current episode hypomanic (ICD-10 - F31.0) INCREASE Olanzapine (zyprexa)- 10mg once daily at bedtime Denzel has tried a number of different mood stabilizer and antidepressant meds this past year, but has not found stability (nely, jordan, vance). Discussed due to her current state of distress she should INCREASE olanzapine, as it will also help with sleep for her- Discussed risks, benefits, alternatives, and she can participate in informed consent. Denzel is a 48 yo woman with 20+ years of episodes that from the data that is available to me appear to be non-epilept ic, currently being treated for epilepsy in [facility], and in treatment wiht myself for bipolar disorder and anxiety. 08/19/2024 Bipolar affective disorder, current episode hypomanic (ICD-10 - F31.0) continue seroquel 100mg, can go up to 150mg as needed for depressed mood Denzel has tried a number of different mood stabilizer and antidepressant meds this past year, but has not found stability (vraylar, viibryd, olanzapine, seroquel). Will go back to seroquel as she noted it was the best of those options. Discussed other mood stabilizers but cannot use oxcarb or carbamazepine due to med interactions. Denzel is a 49 yo woman with 20+ years of episodes that from the data that is available to me appear to be non-epilept ic, currently being treated for epilepsy in [facility], and in treatment wiht myself for bipolar disorder and anxiety. 07/12/2024 Bipolar affective disorder, current episode hypomanic (ICD-10 - F31.0) STOP olanzapine START quetiapine (seroquel) if needed after washing out from olanzapine Denzel has tried a number of different mood stabilizer and antidepressant meds this past year, but has not found stability (vraylar, viibryd, olanzapine, seroquel). Will go back to seroquel as she noted it was the best of those options. Discussed other mood stabilizers but cannot use oxcarb or carbamazepine due to med interactions. Denzel is a 48 yo woman with 20+ years of episodes that from the data that is available to me appear to be non-epilept ic, currently being treated for epilepsy in [facility], and in treatment wiht myself for bipolar disorder and anxiety. 11/18/2024 Bipolar affective disorder, current episode hypomanic (ICD-10 - F31.0) TRY abilify 2mg once daily Denzel has tried a number of different mood stabilizer and antidepressant meds this past few years, but has not found stability (vraylar, viibryd, olanzapine, seroquel). Will trial aripiprazole per her preference- will start low dose and titrate up as appropriate.Disc ussed risks, benefits and alternatives and she is able to participate in informed consent. Other options- depakote (interaction with lamotrigine) Denzel is a 49 yo woman with 20+ years of episodes that from the data that is available to me appear to be non-epilept ic, currently being treated for epilepsy in [facility], and in treatment wiht myself for bipolar disorder and anxiety. 12/27/2024 Bipolar affective disorder, current episode hypomanic (ICD-10 - F31.0) Denzel has tried a number of different mood stabilizer and antidepressant meds this past few years, but has not found stability (vraylar, viibryd, olanzapine, seroquel). She reports at least some small benefit from Abilify. We discussed option for dose increase today, which she was interested in. Will increase to 5 mg. Common side effects reviewed. Will continue to titrate up as appropriate. Plan to follow-up again in 1 month. Denzel is a 49 yo woman with 20+ years of episodes that from the data that is available to me appear to be non-epilept ic, currently being treated for epilepsy in [facility], and in treatment wiht myself for bipolar disorder and anxiety. 01/24/2025 Bipolar affective disorder, current episode hypomanic (ICD-10 - F31.0) Denzel has tried a number of different mood stabilizer and antidepressant meds this past few years, but has not found stability (vraylar, viibryd, olanzapine, seroquel). Patient reports improvement in mood, anxiety, and mood stabilization with increase in Abilify dose. She denies any medication side effects. She is feeling current dosing to be effective and would like to continue on this for the time being. Plan to follow-up again in 1 to 3 months, sooner as needed. 05/07/2024 Other Neuro, I spent a total of 30 minutes on the present encounter, which includes preparing for the encounter, obtaining history, performing examination, reviewing diagnostic data, ordering medications/test ing/procedures and other care coordination, referring to and communicating with other health director of medicare, documenting clinical information in the record, counseling, providing instructions and answering the patient's questions. The patient understands and agrees with the plan of care outlined. This is a telehealth visit that was performed with the originating site at patient's HOME and the distant site at physician's office. Verbal consent to participate in interactive audio/video visit was obtained as noted above. I discussed with the patient the nature of our telehealth visits, that: I would evaluate the patient and recommend diagnostics and treatments based on my assessment; Our sessions are not being recorded and that personal health information is protected; Our team would provide follow up care in person if/when the patient needs it. This note was generated with voice recognition software. Please excuse any errors which may have been overlooked during review. Sometimes these errors may affect the content or meaning of a given sentence. If any questions, please contact the [facility] office at [phone]. Denzel is a 48 yo woman with 20+ years of episodes that from the data that is available to me appear to be non-epilept ic, currently being treated for epilepsy in [facility], and in treatment wiht myself for bipolar disorder and anxiety. 07/12/2024 Other Neuro, I spent a total of 30 minutes on the present encounter, which includes preparing for the encounter, obtaining history, performing examination, reviewing diagnostic data, ordering medications/test ing/procedures and other care coordination, referring to and communicating with other health director of medicare, documenting clinical information in the record, counseling, providing instructions and answering the patient's questions. The patient understands and agrees with the plan of care outlined. This is a telehealth visit that was performed with the originating site at patient's HOME and the distant site at physician's office. Verbal consent to participate in interactive audio/video visit was obtained as noted above. I discussed with the patient the nature of our telehealth visits, that: I would evaluate the patient and recommend diagnostics and treatments based on my assessment; Our sessions are not being recorded and that personal health information is protected; Our team would provide follow up care in person if/when the patient needs it. This note was generated with voice recognition software. Please excuse any errors which may have been overlooked during review. Sometimes these errors may affect the content or meaning of a given sentence. If any questions, please contact the [facility] office at [phone]. Denzel is a 48 yo woman with 20+ years of episodes that from the data that is available to me appear to be non-epilept ic, currently being treated for epilepsy in [facility], and in treatment wiht myself for bipolar disorder and anxiety. 08/19/2024 Other Neuro, I spent a total of 30 minutes on the present encounter, which includes preparing for the encounter, obtaining history, performing examination, reviewing diagnostic data, ordering medications/test ing/procedures and other care coordination, referring to and communicating with other health director of medicare, documenting clinical information in the record, counseling, providing instructions and answering the patient's questions. The patient understands and agrees with the plan of care outlined. This is a telehealth visit that was performed with the originating site at patient's HOME and the distant site at physician's office. Verbal consent to participate in interactive audio/video visit was obtained as noted above. I discussed with the patient the nature of our telehealth visits, that: I would evaluate the patient and recommend diagnostics and treatments based on my assessment; Our sessions are not being recorded and that personal health information is protected; Our team would provide follow up care in person if/when the patient needs it. This note was generated with voice recognition software. Please excuse any errors which may have been overlooked during review. Sometimes these errors may affect the content or meaning of a given sentence. If any questions, please contact the [facility] office at [phone]. Denzel is a 49 yo woman with 20+ years of episodes that from the data that is available to me appear to be non-epilept ic, currently being treated for epilepsy in [facility], and in treatment wiht myself for bipolar disorder and anxiety. 11/18/2024 Other Neuro, I spent a total of 30 minutes on the present encounter, which includes preparing for the encounter, obtaining history, performing examination, reviewing diagnostic data, ordering medications/test ing/procedures and other care coordination, referring to and communicating with other health director of medicare, documenting clinical information in the record, counseling, providing instructions and answering the patient's questions. The patient understands and agrees with the plan of care outlined. This is a telehealth visit that was performed with the originating site at patient's HOME and the distant site at physician's office. Verbal consent to participate in interactive audio/video visit was obtained as noted above. I discussed with the patient the nature of our telehealth visits, that: I would evaluate the patient and recommend diagnostics and treatments based on my assessment; Our sessions are not being recorded and that personal health information is protected; Our team would provide follow up care in person if/when the patient needs it. This note was generated with voice recognition software. Please excuse any errors which may have been overlooked during review. Sometimes these errors may affect the content or meaning of a given sentence. If any questions, please contact the [facility] office at [phone]. Denzel is a 49 yo woman with 20+ years of episodes that from the data that is available to me appear to be non-epilept ic, currently being treated for epilepsy in [facility], and in treatment wiht myself for bipolar disorder and anxiety. 01/24/2025 Other Visit conducte d using telemedicine technology including audio and video and was requested by patient. Patient was at home in [place] during visit. Plan Of Treatment No Information Insurance Providers Payer Name Payer Address Payer Phone Subscriber Number Group Number Insured Name Patient Relationship to Insured Coverage Start Date Coverage End Date [facility] [address] [place] [phone] [id number] Nasim piresDenzel Self - patient is the insured Medical (General) History Medical History History ICD Code Seizure R56.9 COVID-19 U07.1 Surgical History Surgery Date(Month/Year) Hospitalization History Reason Date(Month/Year) in patient EEG in patient EEG
--- OUTSIDE RECORDS SUMMARY | 2025-04-13 23:23 | XMS_ITS | Encounter Summary ---
Author Organization [facility] Address [address] [place] [address] Care Team Providers Care Vacuum Cleaner Repairer Name Role Phone Martin Tovar Primary Care Provider [phone] Encounter Details Date Type Department Care Team (Late st Contact Info) Description 05/13/2020 Documentation [facility] [address] [place] [phone] Tabby Osborne MD [address] [place] [id number] Social History Tobacco Use Types Packs/Day Years [...] AM EST documented as of this encounter Functional Status documented as of this encounter Plan of Treatment Not on file documented as of this encounter Visit Diagnoses Not on filedocumented in this encounter Care Teams Vacuum Cleaner Repairer Relationship Specialty Start Date End Date Martin Tovar 294 [facility] [address] [place] [address] PCP - General Internal Medicine 11/11/19 documented as of this encounter
--- OUTSIDE RECORDS SUMMARY | 2025-04-13 23:23 | XMS_ITS | Encounter Summary ---
Author Organization [facility] Address [address] [place] [address] Care Team Providers Care Manager Of Data Name Role Phone Martin Tovar Primary Care Provider [phone] Encounter Details Date Type Department Care Team (Late st Contact Info) Description 02/26/2020 Spreadsavet Message [facility] [address] [place] [address] [phone] Gildardo Thomas MD [address] [place] [address] [place] [address] RE: Visit Follow-Up Question Social History Tobacco Use Types Packs/Day [...] on filedocumented in this encounter Care Teams Manager Of Data Relationship Specialty Start Date End Date Martin Tovar 294 [facility] [address] [place] [address] PCP - General Internal Medicine 11/11/19 documented as of this encounter
--- OUTSIDE RECORDS SUMMARY | 2025-04-13 23:23 | XMS_ITS | Encounter Summary ---
Author Organization [facility] Address [address] [place] [address] Care Team Providers Care Drug Enforcement Agent Name Role Phone Martin Tovar Honorio Primary Care Provider [phone] Encounter Details Date Type Department Care Team (Late st Contact Info) Description 05/27/2020 myChart Message [facility] [address] [place] [address] [phone] Gildardo Thomas MD [address] [place] [address] [place] [address] RE: Non-Urgent Medical Question Social History Tobacco Use Types Packs/Day [...] as of this encounter Visit Diagnoses Diagnosis Insomnia, unspecified type- Primary documented in this encounter Care Teams Drug Enforcement Agent Relationship Specialty Start Date End Date Martin Tovar [address] [address] PCP - General Internal Medicine 11/11/19 documented as of this encounter
--- OUTSIDE RECORDS SUMMARY | 2025-04-13 23:23 | XMS_ITS | Encounter Summary ---
Author Organization [facility] Address [address] [place] [address] Care Team Providers Care Abstract Clerk Name Role Phone Martin Tovar Primary Care Provider [phone] Encounter Details Date Type Department Care Team (Late st Contact Info) Description 12/25/2019 Orders Only [facility] Xray [address] [place], [place] [phone] Nikolas Wilson MD [address] [place] [address] Social History Tobacco Use Types Packs/Day Years [...] on filedocumented in this encounter Care Teams Abstract Clerk Relationship Specialty Start Date End Date Martin Tovar [address] [address] PCP - General Internal Medicine 11/11/19 documented as of this encounter
--- OUTSIDE RECORDS SUMMARY | 2025-04-13 23:24 | XMS_ITS | Encounter Summary ---
Author Organization [facility] Address [address] [place] [address] Care Team Providers Care Woods Rider Name Role Phone Martin Tovar Primary Care Provider [phone] Encounter Details Date Type Department Care Team (Late st Contact Info) Description 05/20/2020 myChart Message [facility] Neurology Clinic [address] [place] [address] [phone] Gildardo Thomsa MD [address] [place] [address] [place] [address] RE: Referral Request Social History Tobacco Use Types Packs/Day Years [...] on filedocumented in this encounter Care Teams Woods Rider Relationship Specialty Start Date End Date Martin Tovar 294 [facility] [address] [place] [address] PCP - General Internal Medicine 11/11/19 documented as of this encounter
--- OUTSIDE RECORDS SUMMARY | 2025-04-13 23:24 | XMS_ITS | Encounter Summary ---
Author Organization [facility] Address [address] [place] [address] Care Team Providers Care Wind Turbine Mechanic Name Role Phone Martin Tovar Honorio Primary Care Provider [phone] Encounter Details Date Type Department Care Team (Late st Contact Info) Description 05/27/2020 myChart Message [facility] Neurology Clinic [address] [place] [address] [phone] Gildardo Thomas MD [address] [place] [address] Pediatric [place] [address] RE: Non-Urgent Medical Question Social History Tobacco [...] on filedocumented in this encounter Care Teams Wind Turbine Mechanic Relationship Specialty Start Date End Date Martin Tovar 294 [facility] [address] [place] [address] PCP - General Internal Medicine 11/11/19 documented as of this encounter
--- OUTSIDE RECORDS SUMMARY | 2025-04-13 23:24 | XMS_ITS | Clinical Summary ---
Author Organization [facility] Address [address] [place] [address] Care Team Providers Care Production Administrative Assistant Name Role Phone Martin Tovar Primary Care Provider [phone] Allergies Active Allergy Reactions Criticality Noted Date Comments Penicillins Vomiting 12/24/2019 Medications busPIRone (BUSPAR) 10 mg tablet 10 mg 2 times a day. One tablet in AM & one tablet in PM 0 Active hydrOXYzine HCL (ATARAX) 25 mg tablet 0 Active norethindrone (AYGESTIN) 5 mg tablet Take 5 mg by mouth daily. 0 Active midazolam (Nayzilam) 5 mg/spray (0.1 mL) spray,non-aeroso lIndications:Par tial idiopathic epilepsy with seizures of localized onset, intractable, without status epilepticus Administer 5 mg into affected nostril(s) daily as needed (seizure cluster). 1 each 1 0 Active sertraline (ZOLOFT) 100 mg tablet Take 100 mg by mouth daily. Active lamoTRIgine (LaMICtal XR) 250 mg tablet extended release 24hr Take 1 tablet (250 mg total) by mouth 2 (two) times a day. 60 tablet 5 1 Active cloBAZam (ONFI) 10 mg tablet 1 Active brivaracetam (Briviact) 100 mg tabletIndication s:Partial idiopathic epilepsy with seizures of localized onset, intractable, without status epilepticus Take 1 tablet (100 mg total) by mouth 2 times a day. 60 tablet 2 1 Active nicotine polacrilex (NICORETTE) 4 mg gum CHEW 1 PIECE EVERY 2 HOURS NEEDED FOR SMOKING CESSATION FOR 6 WEEKS. 1 Active nicotine (NICODERM CQ) 21 mg/24 hr patch APPLY 1 PATCH TOPICALLY DAILY FOR 6 WEEKS 1 Active clonazePAM (KlonoPIN) 0.5 mg tablet Take 0.5 mg by mouth daily as needed. anxiety 1 Active Active Problems Problem Noted Date Diagnosed Date Primary insomnia 06/03/2020 Functional neurological symp solomon disorder with attacks or seizures 05/16/2020 Assessment & Plan (09/25/2020 11:37 PM EDT): Discussed recent EMU admission to address uncontrolled or possibly worsened seizure frequency despite multiple medication trials. Patient's typical seizure was captured on cEEG which was not associated with seizure activity. She has established care with neuropsychiatry and undergoing cognitive behavioral therapy (CBT) and ongoing mood medication management. - continue current seizure regimen and discuss with Dr. Thomas possible consolidation of her anti-seizure medications if cognitive behavioral therapy and mood management improves her seizure frequency. Seizure precautions were reviewed as well as side effects of the medication(s). The patient knows to contact me should side effects occur. I spent a total of 60 minutes on the date of encounter, which included: Obtaining and/or reviewing separately obtained history Performing a medically appropriate exam and/or evaluation Counseling and educating the patient/family/caregiver Ordering medications, tests, procedures Documenting clinical information in the health record Anxiety disorder 12/24/2019 Family History Relation Name Status Comments Father Alive Mother Alive Social History Tobacco Use Types Packs/Day Years Used Date Smoking Tobacco: Every Day Cigarettes Smokeless Tobacco: Never Alcohol Use Standard Drinks/Week Comments Yes 2 (1 standard drink = 0.6 oz pur e alcohol) Comments No Sex and Gender Information Value Date Recorded Sex Assigned at Female 05/11/2020 10:00 AM EST Legal Sex Female 12:08 PM EDT Gender Identity Female 05/11/2020 10:00 AM EST Sexual Orientation Straight 05/11/2020 10 :00 AM EST Last Filed Vital Signs Vital Sign Reading Time Taken Comments Blood Pressure 121/74 05/16/2020 12:03 PM EST Pulse 75 05/16/2020 12:03 PM EST Temperature 36.8 C (98.2 F) 05/16/2020 12:03 PM EST Respiratory Rate 18 05/16/2020 12:03 PM EST Oxygen Saturation 99% 05/16/2020 12:03 PM EST Inhaled Oxygen Concentration - - Weight 53.5 kg (118 lb) 09/25/2020 12:20 PM EDT Height 165.1 cm (5' 5 ) 09/25/2020 12:20 PM EDT Body Mass Index 19.64 09/25/2020 12:20 PM EDT Plan of Treatment Health Maintenance Due Date Last Done Comments Cervical Cancer Screening 1974 Cologuard 1974 Colon Cancer Screening 1974 Colonoscopy 1974 FOBT / Fit Test 1974 HIV Screening 1974 HPV and Pap Smear 1974 Pap Smear 1974 Sigmoidoscopy 1974 Hepatitis B Vaccines (1 of 3 - 19+ 3-dose series) 07/14 DTaP,Tdap,and Td Vaccines (1 - Tdap) 1996 Mammogram 2014 Alcohol/Substance Use Screening 05/15/2024 Pneumococcal Vaccine: 50+ Years (1 of 1 - PCV) 025 Zoster Vaccines (1 of 2) 2024 Influenza Vaccine (#1) 2024 COVID-19 Vaccine ( - season) 2025 Insurance [facility] Advance Directives Documents on File Type Date Recorded Patient Vp Delivery Expl anation Health Care Proxy 05/16/2020 8:15 PM 2020 * Full Code (Latest Code Status on File) Date Activated Date Inactivated Comments 05/13/2020 5:45 PM 05/16/2020 7:01 PM * Full Code Date Activated Date Inactivated Comments 05/13/2020 5:45 PM 05/13/2020 5:45 PM Care Teams Production Administrative Assistant Relationship Specialty Start Date End Date Martin Tovar [address] [place] [address] PCP - General Internal Medicine 11/11/19
--- OUTSIDE RECORDS SUMMARY | 2025-04-13 23:24 | XMS_ITS | Encounter Summary ---
Author Organization [facility] Address [address] [place] [address] Care Team Providers Care Golf Starter And Ranger Name Role Phone Martin Tovar Primary Care Provider [phone] Reason for Visit * Reason Onset Date Comments mychart message 06/24/2020 Encounter Details Date Type Department Care Team (Late st Contact Info) Description 06/24/2020 Telephone [facility] Neurology Clinic [address] [place] [address] [phone] Telephone Intake, Staff mychart message Social History Tobacco Use Types Packs/Day Years [...] on filedocumented in this encounter Care Teams Golf Starter And Ranger Relationship Specialty Start Date End Date Martin Tovar 294 [facility] [address] [place] [address] PCP - General Internal Medicine 11/11/19 documented as of this encounter
[2025-04-13 23:50] VITALS: BP 113/75; PULSE 78; RESP 16; TEMP 36.9; O2SAT 97
--- NOTE | 2025-04-13 23:55 | ED_ITS ---
HPI - Abdominal Pain General Chief Complaint: Abdominal Pain Stated Complaint: Stomach Pain Time Seen by Provider: 04/13/25 23:41 History of Present Illness HPI narrative: Patient is a 49-year-old female with a history of having a bulge in the umbilical area. It has been ongoing for weeks. Patient reports some nausea there is no vomiting patient complained when she pressed on it the pain gets worse. No fever no chills. No vomiting. No diarrhea. Positive bowel movement today. Patient from home. She works in a pet store. She stated when she lifts something at the pet store the area seems to be more prominent. Related Data Home Medications ?Medication ?Instructions ?Recorded ?Confirmed clonazepam 0.5 mg tablet 0.5 mg PO DAILY PRN Anxiety 05/30/22 05/30/22 lamotrigine 25 mg tablet (Lamictal) 50 mg PO DAILY 05/30/22 norethindrone acetate 5 mg tablet 0.5 tab PO DAILY 05/30/22 buspirone 30 mg tablet 1 tab PO BID 06/02/22 quetiapine 100 mg tablet 1 tab PO BEDTIME 06/02/22 Allergies Allergy/AdvReac Type Severity Reaction Status Date / Time fluoxetine (From Prozac) Allergy Vomiting Verified 04/13/25 20:14 Penicillins (PCN) Allergy Vomiting Verified 04/13/25 20:14 Review of Systems Review of Systems Positive pain to the umbilical area PMFSH Past Medical History Attestation statement: The following information was validated with the patient. Medical History Psychogenic nonepileptic seizure History of shingles Migraine Social History Social History Household Members: Friend(s) Household Members Other:: Sabine Cowart Patient Tobacco Use Status: Current everyday Tobacco user Tobacco use type: Cigarette Advance Directives: No Advance Directives Information Provided: No Physical Exam ED Exam Exam: Appearance: Alert. Oriented X3. No acute distress. Eyes: Pupils equal, round and reactive to light. ENT: Pharynx normal. Neck: Normal inspection. Neck supple. No lymph nodes noted. No crepitus CVS: Normal heart rate and rhythm. Pulses normal. Normal S1 and S2 Respiratory: No respiratory distress. Breath sounds normal. No Wheezing. No rales Abdomen: Soft and nontender. No rigidity. No distention. good BS x4. Soft possible hernia noted in the umbilical area. Nonreducible. Skin: Skin warm and dry. Normal skin color. Normal skin turgor. Extremities: No lower extremity edema. Neurovascular intact to all extremities. No Lacerations. No Rash Neuro: Oriented X 3. No motor deficit. No sensory deficit. Moving all extermities. No slurred speech Vital Signs: Vital Signs - 24 hr 04/13/25 20:11 04/13/25 23:50 Temperature 97.6 F 98.4 F Pulse Rate 96 78 Respiratory Rate 18 16 Blood Pressure 124/80 113/75 Pulse Oximetry 97 97 Oxygen Delivery Method Room Air Room Air BMI result Body Mass Index 20.1 Medical Decision Making Medical Decision Making [facility] Narrative: Patient had a hernia in the umbilical area. It is not reducible her white count is normal. Lactate is 1.7. Patient is electrolytes are consistent with dehydration. test was negative lipase is negative no evidence for pancreatitis. Patient's urine is negative for infection. Discussed with patient possibility of hernia. Recommended a CT scan for further evaluation. Patient refused. Wants to leave. Explained to patient risk of strangulation still exists. Patient states understanding left AMA. Differential Diagnosis Differential Diagnoses: The differential diagnosis associated with the presentation includes Incarcerated hernia, umbilical hernia, fat containing hernia, obstruction Admission/Observation Consideration of admission/observation: Escalation of care including admission/observation considered Lab Data [facility] Lab Attestation statement: I reviewed the patient's lab results. 04/13/25 20:51 04/13/25 20:51 Labs: Lab Results 04/13/25 Range/Units 20:51 WBC 6.0 (4.8-10.8) X10*3/uL RBC 4.42 (4.20-5.50) X10*6/uL Hgb 14.7 (12.0-16.0) g/dl Hct 43.0 (37.0-47.0) % MCV 97.3 (80.0-98.0) fL MCH 33.3 H (27.0-33.0) pg MCHC 34.2 (31.0-35.0) g/dl RDW 13.4 (11.0-16.0) % Plt Count 270 (160-400) X10*3/uL MPV 9.7 (9.4-12.3) fL Immature Gran % (Auto) 0.2 (0.0-0.4) % Neut % (Auto) 55.7 (45-73) % Lymph % (Auto) 37.7 (20-40) % Jennings % (Auto) 4.5 (2-11) % Eos % (Auto) 1.2 (0-4) % Baso % (Auto) 0.7 (0-2) % Lymph # (Auto) 2.3 (1.2-4.9) X10*3/uL Jennings # (Auto) 0.3 (0.1-1.2) X10*3/uL Eos # (Auto) 0.1 (0.0-0.4) X10*3/uL Baso # (Auto) 0.0 (0.0-0.2) X10*3/uL Abs Immat Gran (auto) 0.01 (0.00-0.03) X10*3/uL Absolute Neuts (auto) 3.3 (2.0-8.3) x10*3/uL Absolute Nucleated RBC 0.000 (0.0-0.012) X10*3/uL Nucleated RBC % (auto) 0.0 (0.0-0.2) /100WBC Sodium 147 H (135-145) mmol/L Potassium 3.8 (3.3-5.1) mmol/L Chloride 109 H (96-108) mmol/L Carbon Dioxide 26 (22-29) mmol/L Anion Gap 16 (12-20) BUN 7 L (9-16) mg/dL Creatinine 0.75 (0.5-1.4) mg/dL Estim Creat Clear Calc 77.6 Estimated GFR > 60 Random Glucose 130 H (60-115) mg/dL Lactic Acid 1.7 (0.5-2.0) mmol/L Calcium 9.7 (8.4-10.2) mg/dL Total Bilirubin 0.4 (0.0-1.0) mg/dL AST 42 H (5-31) U/L ALT 43 H (0-31) U/L Alkaline Phosphatase 79 (39-117) U/L Total Protein 8.2 H (6.5-8.0) g/dL Albumin 5.2 H (3.5-5.0) g/dL Lipase 32 (8-78) U/L Beta HCG, Quant 3 mIU/mL Urine Color Yellow Urine Appearance Clear Urine pH 6.5 (5.0-9.0) Ur Specific [place] <= 1.005 (1.005-1.025) Urine Protein Negative (Neg-Trace) mg/dL Urine Glucose (UA) Negative (Negative) mg/dL Urine Ketones Negative (Negative) mg/dL Urine Blood Negative (Negative) Urine Nitrite Negative (Negative) Ur Leukocyte Esterase Negative (Negative) Social Determinants Patient?s care significantly limited by Social Determinants of Health including: Alcoholism and drug addiction in family and Problems related to primary support group Discharge Plan Discharge Clinical Impression: Left against medical advice, Hernia, umbilical Patient Disposition: Home, Self-Care Instructions: Against Medical Advice (ED), Umbilical Hernia (ED) Additional Instructions: If you change your mind come back at any time Prescriptions: No Action clonazepam 0.5 mg Tablet 0.5 mg PO DAILY PRN (Reason: Anxiety) lamotrigine [Lamictal] 25 mg Tablet 50 mg PO DAILY Patient Comments: Patient was not taking 250 mg BID as prescribed. Last took one week ago and patient reports missing man doses. Breanna starting 50 mg daily and encouraged patient to talk to her prescriber. norethindrone acetate 5 mg tablet 0.5 tab PO DAILY quetiapine 100 mg tablet 1 tab PO BEDTIME Rx Instructions: Last filled 11/16/21, 30 day supply. buspirone 30 mg tablet 1 tab PO BID Rx Instructions: Last filled 11/16/21 for 30 day supply per pharmacy. Referrals: Vasquez Corrales MD [Physician, General Surgery] - 04/14/25 Stand Alone Forms: Against Medical Advice Print Language: Liberian
[2025-04-14 00:08] VITALS: BP 113/75; PULSE 78; RESP 16; TEMP 36.9; O2SAT 97
== END 2025-04-14 00:09 | disposition home or self-care (01) ==
PROVIDERS: Physician Assistant; Emergency Provider Emergency Medicine Emergency Medical Services; PCP Internal Medicine
DX: K42.9 Umbilical hernia without obstruction or gangrene (principal); Z53.29 Procedure and treatment not carried out because of patient's decision for other reasons; R10.9 Unspecified abdominal pain
CPT/HCPCS: 36415; 80053; 81003; 83605; 83690; 84702; 85025; 87040; 99283; 99284

== ENCOUNTER 2025-04-25 13:03 | Outpatient (AMB) | payer OTHER, SELFPAY ==
--- OUTSIDE RECORDS SUMMARY | 2024-05-27 11:00 | XMS_ITS ---
Author Organization [facility] [employer] Address [address] [place] [phone] Care Team Providers Care Leach Runner Name Role Phone Brooke Avalos Primary Care Provider DEION Bentley [phone] REASON FOR VISIT In office f/u Bipolar affective disorder, current episode hypomanic Encounters Encounter Location Date Provider Diagnosis [facility] [address] [address] 05/27/2024 DEION LUCIANO Plan Of Treatment Next Appt Details Provider Name:Sherry Sullivan christy, 05/16/2025 10:30:00 AM, [address] [place] [address], [place] [address], [place], [phone], Progress Notes * Denzel GONSALES MDOB:[birth year] (49 yo F)Acc No.[id number]:05/27/2024 Patient: Dayna Denzel TOUSSAINT Provider: Homar LUCIANO D.O :1975 A ge:48 Y S ex:Female Date:05/27/2024 Address:[address] [place] [address] [id number] Pcp:Brooke Avalos Subjective: * Chief Complaints: * 1 . In office f/u Bipolar affective disorder, current episode hypomanic. * Medical History: Objective: * Vitals: Assessment: Plan: * Treatment: * * Electronic signature of BRET LUCIANO DO on 04/25/2025 at 06:41 PM EST Sign off status: Pending * Provider: Homar LUCIANO D.O Date: 0 05/27/2024 Generated for Ritchie richmond/Kyle/Amina on: 1 06/26/2024 06:41 PM EST
--- OUTSIDE RECORDS SUMMARY | 2024-08-16 11:30 | XMS_ITS ---
Author Organization [facility], [facility] Address [address] [place] [phone] Care Team Providers Care Seed Buyer Name Role Phone Brooke Avalos Primary Care Provider DEION Bentley [phone] REASON FOR VISIT Doxy f/u Bipolar affective disorder, current episode hypomanic Encounters Encounter Location Date Provider Diagnosis [facility] [address] [address] 08/16/2024 DEION LUCIANO Plan Of Treatment Next Appt Details Provider Name:Sherry Sullivan christy, 05/16/2025 10:30:00 AM, [address] [place] [address], [place] [address], [place], [address], Progress Notes * Denzel GONSALES MDOB:[birth year] (49 yo F)Acc No.[id number]:08/16/2024 Patient: Dayna Denzel TOUSSAINT Provider: Homar LUCIANO D.O :1975 A ge:49 Y S ex:Female Date:08/16/2024 Address:[address] [place] [address] [phone] Pcp:Brooke Avalos Subjective: * Chief Complaints: * 1 . Doxy f/u Bipolar affective disorder, current episode hypomanic. * Medical History: Objective: * Vitals: Assessment: Plan: * Treatment: * * Electronic signature of BRET LUCIANO DO on 04/25/2025 at 06:41 PM EST Sign off status: Pending * Provider: Homar LUCIANO D.O Date: 0 08/16/2024 Generated for Ritchie richmond/Kyle/Amina on: 1 06/26/2024 06:41 PM EST
--- OUTSIDE RECORDS SUMMARY | 2024-12-18 06:30 | XMS_ITS ---
Author Organization Count Includes [facility] [employer] [facility] Address [address] [place] [phone] Care Team Providers Care Supervisor Assembling Name Role Phone Junaiddallin Brooke Primary Care Provider DEION Bentley Unavailable [phone] REASON FOR VISIT In office f/u Psychophysiological insomnia, Bipolar disorder Medications Medication SIG (Take, Route, Fr equency, Duration) Notes Start Date End Date Status lamoTRIgine ER 250 MG 1 tablet Orally twice a day Active Nayzilam 5 MG/0.1ML 1 spray as needed Na hugo Twice a day Active lamoTRIgine ER 100 MG 1 tablet Oral twic e daily; Duration: 90 days Active Ibuprofen 600 MG 1 tablet with food o r milk as needed Orally Three times a day Active lamoTRIgine ER 25 MG 1 tab to take with 100mg tabs for 125mg twice daily Orally twice daily; Duration: 90 days A ctive ARIPiprazole 2 MG 1 tablet Orally Once a day; Duration: 30 days 11/18/2024 Active Keppra XR 750 MG 1 tablet Orally twice a day Active clonazePAM 0.5 MG 1 tablet Orally Once a day as needed for anxiety; Duration: 90 days Active traZODone HCl 50 MG 1/2-1 tablet at bedt mitali as needed for insomnia Orally Once a day; Duration: 30 day(s) Active Encounters Encounter Location Date Provider Diagnosis Count Includes [facility] [employer] [address] [address] 12/18/2024 DEION LUCIANO Plan Of Treatment Next Appt Details Provider Name:Sherry harrison, 05/16/2025 10:30:00 AM, [address] [facility], Suite [facility], [place], [address], Progress Notes * Denzel GONSALES MDOB:[birth year] (49 yo F)Acc No.[id number]:12/18/2024 Progress Notes Patient: Denzel HOSKINS Provider: Homar LUCIANO D.O :1975 A ge:49 Y S ex:Female Date:12/18/2024 Address:[address] [place] [phone] Pcp:Brooke Avalos Subjective: * Chief Complaints: * 1 . In office f/u Psychophysiological insomnia, Bipolar disorder. * Medical History: * Medications: T aking traZODone HCl 50 MG Tablet 1/2-1 tablet at bedtime as needed for insomnia Orally Once a day , Taking clonazePAM 0.5 MG Tablet 1 tablet Orally Once a day as needed for anxiety , Taking lamoTRIgine ER 100 MG Tablet Extended Release 24 Hour 1 tablet Oral twice daily , Taking lamoTRIgine ER 25 MG Tablet Extended Release 24 Hour 1 tab to take with 100mg tabs for 125mg twice daily Orally twice daily , Taking Ibuprofen 600 MG Tablet 1 tablet with food or milk as needed Orally Three times a day , Taking Nayzilam 5 MG/0.1ML Solution 1 spray as needed Nasally Twice a day , Taking lamoTRIgine ER 250 MG Tablet Extended Release 24 Hour 1 tablet Orally twice a day , Taking Keppra XR 750 MG Tablet Extended Release 24 Hour 1 tablet Orally twice a day , Taking ARIPiprazole 2 MG Tablet 1 tablet Orally Once a day Objective: * Vitals: Assessment: Plan: * Treatment: * * Electronic signature of BRET LUCIANO DO on 04/25/2025 at 06:41 PM EST Sign off status: Pending * Provider: Homar LUCIANO D.O Date: 0 12/18/2024 Generated for Ritchie richmond/Kyle/Amina on: 1 06/26/2024 06:41 PM EST
--- OUTSIDE RECORDS SUMMARY | 2025-04-21 04:30 | XMS_ITS ---
Author Organization [facility] [employer] [facility] Address [address] [place] [id number] Care Team Providers Care Sales Agent [employer] Name Role Phone Junaiddallin Brooke Primary Care Provider Unavailab DEION Fiore Unavailable [phone] Sherry Khan Unavailable [phone] REASON FOR VISIT [facility] work note Medications Medication SIG (Take, Route, Frequency, Duration) Notes Start Date End Date Status clonazePAM 0.5 MG 1 tablet Orally Once a day as needed for anxiety; Duration: 90 days 03/20/2025 Active ARIPiprazole 5 MG 1 tablet Orally Once a day; Duration: 30 days Active Rizatriptan Benzoate 5 MG 1 tablet as ne eded at first sign of migraine. if symptoms persist or return, may repeat dose after >2 hours if not resolved Orally; Duration: 30 days Active traZODone HCl 50 MG 1/2-1 tablet at bedt mitali as needed for insomnia Orally Once a day; Duration: 30 days Active Keppra XR 750 MG 1 tablet Orally twic e a day Active lamoTRIgine ER 250 MG 1 tablet Orally tw ice a day Active Nayzilam 5 MG/0.1ML 1 spray as needed Na hugo Twice a day Active Ibuprofen 600 MG 1 tablet with food o r milk as needed Orally Three times a day Active Encounters Encounter Location Date Provider Diagnosis [facility] [employer] [address] [id number] 04/21/2025 Sherry Khan Plan Of Treatment Next Appt Details Provider Name:Sherry harrison, 05/16/2025 10:30:00 AM, [address] [facility], [address], [place], [address], Progress Notes * Denzel GONSALES OB:[birth year] (49 yo F)Acc No.[id number]:04/21/2025 Progress Note Patient: Denzel HOSKINS Provider: Claudia Khan RN, CUSTOM STOCK MAKER-C, PEARL DIGGER :1975 A ge:49 Y S ex:Female Date:04/21/2025 Address:[address] [place], [place] [id number] Pcp:Brooke Avalos Subjective: * Chief Complaints: * 1 . [facility] work note. * HPI: C S: Denzel Gonsales is a 49 y.o. left-handed woman with past medical history significant for drug resistant focal epilepsy and anxiety who presents for evaluation and management of diagnosed PNES and her mood symptoms. At last visit 12/27, Abilify dose was increased and patient was restarted on Rizatriptan for acute migraine. Patient reports the increase of Abilify dose has worked well. She feels that mood is generally improved and she feels more even. She is tolerating this dose well without any appreciated side effects. She would like to continue on current dosing. She also reports interval improvement in migraine frequency and severity. She has had a couple of migraines and has tried rizatriptan with benefit for reduction in duration of migraine. She did have 1 migraine that lasted 24 hours despite taking rizatriptan, but had only taken 1 dose as she was not aware she could repeat after 2 hours. Reports overall she is doing better than at last visit. She does have some ongoing stress due to health concerns with her father and is still interested in taking a partial leave for both her own mental health and to help with his medical appointments. Since last visit 01/24, - rizatriptan 5 - clonazepam 0.5 - trazodone 25-50 qhs - abilify 5 *FMLA ended 04/14. * Medical History: * Medications: T aking Ibuprofen 600 MG Tablet 1 tablet with [...] tablet Orally twice a day , Taking traZODone HCl 50 MG Tablet 1/2-1 tablet at bedtime as needed for insomnia Orally Once a day , Taking Rizatriptan Benzoate 5 MG Tablet 1 tablet as needed at first sign of migraine. if symptoms persist or return, may repeat dose after >2 hours if not resolved Orally , Taking ARIPiprazole 5 MG Tablet 1 tablet Orally Once a day , Taking clonazePAM 0.5 MG Tablet 1 tablet Orally Once a day as needed for anxiety Objective: * Vitals: Assessment: Plan: * Treatment: * * Electronic signature of AMBER Aguero CNP on 04/25/2025 at 06:40 PM EST Sign off status: Pending * Provider: Claudia Khan RN, KIM CLARK Date: 06/22/2024 Generated for Printing/FaStarline/eTransmitting on: 06/26/2024 06:40 PM EST History and Physical Notes * HPI (History of Present Illness) Category Sub-Category Detail Notes Category Not es CS Denzel Gonsales is a 49 y.o. left-handed woman with past medical history significant for drug resistant focal epilepsy and anxiety who presents for evaluation and management of diagnosed PNES and her mood symptoms. At last visit 12/27, Abilify dose was increased and patient was restarted on Rizatriptan for acute migraine. Patient reports the increase of Abilify dose has worked well. She feels that mood is generally improved and she feels more even. She is tolerating this dose well without any appreciated side effects. She would like to continue on current dosing. She also reports interval improvement in migraine frequency and severity. She has had a couple of migraines and has tried rizatriptan with benefit for reduction in duration of migraine. She did have 1 migraine that lasted 24 hours despite taking rizatriptan, but had only taken 1 dose as she was not aware she could repeat after 2 hours. Reports overall she is doing better than at last visit. She does have some ongoing stress due to health concerns with her father and is still interested in taking a partial leave for both her own mental health and to help with his medical appointments. Since last visit 01/24, - rizatriptan 5 - clonazepam 0.5 - trazodone 25-50 qhs - abilify 5 *FMLA ended 04/14
--- OUTSIDE RECORDS SUMMARY | 2025-04-21 10:30 | XMS_ITS ---
Author Organization [facility]ly [facility], [facility] [employer] Address [address] [address] Care Team Providers Care Assistant Maintenance Manager Name Role Phone Junaiddallin Brooke Primary Care Provider Unavailab DEION Fiore Unavailable [phone] Sherry Khan Unavailable [phone] Allergies Allergen (clinical drug ingredient) Drug/Non Drug Allergy documented on EMR Reaction Allergy Type Onset Date Status penicillamine Penicillamine Unknown Drug Allergy Active REASON FOR VISIT ROMMEL work note Medications Medication SIG (Take, Route, Frequency, Duration) Notes Start Date End Date Status ARIPiprazole 5 MG 1 tablet Orally Once a day; Duration: 30 days Active clonazePAM 0.5 MG 1 tablet Orally Once a day as needed for anxiety; Duration: 90 days 03/20/2025 Active Keppra XR 750 MG 1 tablet Orally twic e a day Active lamoTRIgine ER 250 MG 1 tablet Orally tw ice a day Active Amitriptyline HCl 10 MG 1 tablet at bedt mitali Orally Once a day; Duration: 30 days 04/21/2025 Active clonazePAM 0.5 MG 1 tablet Orally Once a day as needed for anxiety; Duration: 90 days Active Rizatriptan Benzoate 10 MG 1 tablet as n eeded at first sign of migraine. if symptoms persist or return, may repeat dose after >2 hours if not resolved Orally; Duration: 30 days Active ARIPiprazole 5 MG 1 tablet Orally Once a day; Duration: 30 days Active Nayzilam 5 MG/0.1ML 1 spray as needed Na hugo Twice a day Active Ibuprofen 600 MG 1 tablet with food o r milk as needed Orally Three times a day Active Vital Signs Blood pressure systolic 153 mm Hg 04/21/20 25 Blood pressure diastolic 97 mm Hg 025 Heart Rate 106 /min 04/21/2025 Height 65 in 04/21/2025 Weight 113 lbs 04/21/2025 BMI 18.8 kg/m2 04/21/2025 Encounters Encounter Location Date Provider Diagnosis [address] [address] 04/21/2025 Sherry Khan Generalized anxiety disorder F41.1 ; Migraine G43.909 ; Psychogenic nonepileptic seizure F44.5 ; Panic disorder [episodic paroxysmal anxiety] F41.0 ; Psychophysiological insomnia F51.04 and Bipolar affective disorder, current episode hypomanic F31.0 Assessments Encounter Date Diagnosis (ICD Code) Assessment Notes Treatment Notes Treatment Clinical Notes Section Notes 04/21/2025 Generalized anxiety disorder (ICD-10 - F41.1) 04/21/2025 Migraine (ICD-10 - G43.909) Patient reports increased frequency of migraines and is now having twice per week on average. Rizatriptan is helpful for reducing severity of migraines, but is not resolving them. She has never tried taking a second dose of rizatriptan. We discussed option to take to rizatriptan once for total 10 mg and may also repeat dose after 2 hours if needed migraine does not resolve. She will try this. We discussed options for migraine prevention and ultimately decided to trial low-dose amitriptyline which hopefully will also help with sleep. Plan to follow-up again in 1 month or sooner as needed. 04/21/2025 Psychogenic nonepileptic seizure (ICD-10 - F44.5) She is getting treatment at an epilepsy center in [place], will defer to their treatment plan. 04/21/2025 Panic disorder [episodic paroxysmal anxiety] (ICD-10 - F41.0) 04/21/2025 Psychophysiological insomnia (ICD-10 - F51.04) Patient reported this patient has recent increase in insomnia. As mentioned above plan to trial low-dose amitriptyline. She is no longer using trazodone as she does not find benefit from this. 04/21/2025 Bipolar affective disorder, current episode hypomanic (ICD-10 - F31.0) Patient has trialed a number of mood stabilizers and antidepressants in the past. She is doing well currently on Abilify, although has had recent increasing depression and anxiety related to situational factors regarding her dad's health. She will continue on 5 mg as prescribed. Mentioned above, plans to trial amitriptyline for migraine and insomnia; will monitor her mood closely with starting this medication. Plan to follow-up again in 1 month. Plan Of Treatment Medication Medication Name Sig Start Date Stop Date Notes Amitriptyline HCl 10 MG 1 tablet at bedt mitali Orally Once a day; Duration: 30 days 04/21/2025 clonazePAM 0.5 MG 1 tablet Orally Once a day as needed for anxiety; Duration: 90 days Rizatriptan Benzoate 10 MG 1 tablet as n eeded at first sign of migraine. if symptoms persist or return, may repeat dose after >2 hours if not resolved Orally; Duration: 30 days ARIPiprazole 5 MG 1 tablet Orally Once a day; Duration: 30 days traZODone HCl 50 MG 1/2-1 tablet at bedt mitali as needed for insomnia Orally Once a day; Duration: 30 days Next Appt Details Follow Up: 4 Weeks, Reason: Provider Name:Sherry harrison, 05/16/2025 10:30:00 AM, [address] [place] [address], [address], [address], Progress Notes * ILDADenzel MDOB:[birth year] (49 yo F)Acc No.[id number]:04/21/2025 Progress Note Patient: Denzel HOSKINS Provider: Claudia Khan RN, COUNTY SUPERVISOR-C, LEGAL INTERN :1975 A ge:49 Y S ex:Female Date:04/21/2025 Address:[address] [place] [id number] Pcp:Brooke Avalos Subjective: * Chief Complaints: * L OA work note * HPI: C S: Denzel Wade is a 49 y.o. left-handed woman with past medical history significant for drug resistant focal epilepsy and anxiety who presents for evaluation and management of diagnosed PNES and her mood symptoms. Since last visit 01/24, patient reports she is not doing well. Her dad is struggling with lymphoma diagnosis and she has been on FMLA for the last month helping to care for him. She was post return to work on 04/14, however she has postponed going back to work due to worsening mental health as well as new hernia that tentatively will require surgery. She reports increasing anxiety and depression. She is also having increased insomnia as result of increasing anxiety. Her headaches are worsening as well. She reports she is now having migraines twice per week, sometimes waking her in the middle the night. When she does have a migraine, rizatriptan helps reduce severity but does not 100% resolve the migraine. She has never taken a second rizatriptan dose. * ROS: N eurologic: Balance/falls D enies. H eadache Admits. D izziness D enies. M gely loss D enies. A ttention/concentration difficulty D enies. C oordination problem D enies. S peech disturbance D enies. R estless legs Denies. W eakness D enies. N umbness/paresthesias D enies. T remor/involuntary movement D enies. P sychiatric: Hallucinations D enies. D elusions D enies. M sawyer D enies. A ttentional Difficulties D enies. A nxiety Admits. S uicidality D enies. H omicidality D enies. D epressed mood Endorses. * Medical History: * Medications: T akingIbuprofen 600 MG Tablet 1 tablet with food or milk as needed Orally Three times a day Nayzilam 5 MG/0.1ML Solution 1 spray as needed Nasally Twice a day lamoTRIgine ER 250 MG Tablet Extended Release 24 Hour 1 tablet Orally twice a day Keppra XR 750 MG Tablet Extended Release 24 Hour 1 tablet Orally twice a day traZODone HCl 50 MG Tablet 1/2-1 tablet at bedtime as needed for insomnia Orally Once a day Rizatriptan Benzoate 5 MG Tablet 1 tablet as needed at first sign of migraine. if symptoms persist or return, may repeat dose after >2 hours if not resolved Orally ARIPiprazole 5 MG Tablet 1 tablet Orally Once a day clonazePAM 0.5 MG Tablet 1 tablet Orally Once a day as needed for anxiety Medication List reviewed and reconciled with the patientTaking Ibuprofen 600 MG Tablet 1 tablet with food or milk as needed Orally Three times a day Taking Nayzilam 5 MG/0.1ML Solution 1 spray as needed Nasally Twice a day Taking lamoTRIgine ER 250 MG Tablet Extended Release 24 Hour 1 tablet Orally twice a day Taking Keppra XR 750 MG Tablet Extended Release 24 Hour 1 tablet Orally twice a day Taking traZODone HCl 50 MG Tablet 1/2-1 tablet at bedtime as needed for insomnia Orally Once a day Taking Rizatriptan Benzoate 5 MG Tablet 1 tablet as needed at first sign of migraine. if symptoms persist or return, may repeat dose after >2 hours if not resolved Orally Taking ARIPiprazole 5 MG Tablet 1 tablet Orally Once a day Taking clonazePAM 0.5 MG Tablet 1 tablet Orally Once a day as needed for anxiety Medication List reviewed and reconciled with the patient * Allergies: P enicillamineno[Allergies Verified] Objective: * Vitals: H R:106/min, BP:153/97mm Hg, Wt:113lbs, BMI:18.8Index, Ht: 65 in, Pain scale:01- 10, Ht-cm: 165.1 cm, Wt-k.26 kg. * Examination: G eneral Examination: GENERAL APPEARANCE: p leasant, in no acute distress. HEAD: a traumatic. EYES: n ormal. LUNGS: b reathing comfortably on room air. NEUROLOGIC: A lert and oriented. Speech fluent, answering questions appropriately. No observed facial asymmetry. No observed abnormal involuntary movements. Gait and station baseline.. PSYCH: m ood/affect full range. Assessment: * Assessment: 1. G eneralized anxiety disorder - F41.1 2 . M igraine - G43.909 (Primary)? 3. P sychogenic nonepileptic seizure - F44.5 4 . P anic disorder [episodic paroxysmal anxiety] - F41.0 5 . P sychophysiological insomnia - F51.04 6 . B ipolar affective disorder, current episode hypomanic - F31.0 ? Plan: * Treatment: 2. P sychogenic nonepileptic seizure Clinical Notes: She is getting treatment at an epilepsy center in [place], will defer to their treatment plan. 3. P anic disorder [episodic paroxysmal anxiety] Continue clonazePAM Tablet, 0.5 MG, 1 tablet, Orally, Once a day as needed for anxiety, 90 days, 90, Refills 1. 4. P sychophysiological insomnia Stop traZODone HCl Tablet, 50 MG, 1/2-1 tablet at bedtime as needed for insomnia, Orally, Once a day, 30 days. Clinical Notes: Patient reported this patient has recent increase in insomnia. As mentioned above plan to trial low-dose amitriptyline. She is no longer using trazodone as she does not find benefit from this. 5. B ipolar affective disorder, current episode hypomanic Continue ARIPiprazole Tablet, 5 MG, 1 tablet, Orally, Once a day, 30 days, 30, Refills 1. ? Clinical Notes: Patient has trialed a number of mood stabilizers and antidepressants in the past. She is doing well currently on Abilify, although has had recent increasing depression and anxiety related to situational factors regarding her dad's health. She will continue on 5 mg as prescribed. Mentioned above, plans to trial amitriptyline for migraine and insomnia; will monitor her mood closely with starting this medication. Plan to follow-up again in 1 month. * Procedure Codes: * Follow Up: 4 Weeks * * Sign off status: Completed Addendum: * true * Provider: Claudia Khan RN, KIM CLARK Date: 06/22/2024 Generated for Printing/Faxing/eTransmitting on: 06/26/2024 06:42 PM EST History and Physical Notes * HPI (History of Present Illness) Category Sub-Category Detail Notes Category Not es CS Denzel Wade is a 49 y.o. left-handed woman with past medical history significant for drug resistant focal epilepsy and anxiety who presents for evaluation and management of diagnosed PNES and her mood symptoms. Since last visit 01/24, patient reports she is not doing well. Her dad is struggling with lymphoma diagnosis and she has been on FMLA for the last month helping to care for him. She was post return to work on 04/14, however she has postponed going back to work due to worsening mental health as well as new hernia that tentatively will require surgery. She reports increasing anxiety and depression. She is also having increased insomnia as result of increasing anxiety. Her headaches are worsening as well. She reports she is now having migraines twice per week, sometimes waking her in the middle the night. When she does have a migraine, rizatriptan helps reduce severity but does not 100% resolve the migraine. She has never taken a second rizatriptan dose. Examination Category Sub-Category Detail Notes Category Not es General Examination GENERAL APPEARANCE: pleasant, in n o acute distress HEAD: atraumatic EYES: normal LUNGS: breathing comfortabl y on room air NEUROLOGIC: Alert and oriented. Speech fluent, answering questions appropriately. No observed facial asymmetry. No observed abnormal involuntary movements. Gait and station baseline. PSYCH: mood/affect full ran ge
[2025-04-25 13:11] VITALS: BP 165/83; PULSE 74; BMI 19.6
--- NOTE | 2025-04-25 13:11 | A.OFFVIS_ITS ---
Vital Signs 04/25/25 13:11 Height 5 ft 5 in Weight 118 lb BMI 19.6 BP 165/83 H Blood Pressure Location Rt radial Position Sitting Pulse 74 Intake Visit Reasons: umbilical hernia Intake Note: Patient seen at [facility] on 04-13-2025. Referred for evaluation and treatment of Umbilical hernia. Patient c/o: constant pulling feeling, nausea when painful, tenderness. Agency Sales Director Required: No Accompanied by: friend Wen Allergies fluoxetine (From Prozac) Allergy (Verified 04/25/25 13:17) Vomiting Penicillins (PCN) Allergy (Verified 04/25/25 13:17) Vomiting Medication List - Last Reconciled 04/25/25 by Carlos Mendez MD aripiprazole (Abilify) 5 mg PO DAILY buspirone 1 tab PO BID clonazepam 0.5 mg PO DAILY PRN lamotrigine (Lamictal) 50 mg PO DAILY levetiracetam (Keppra) 500 mg PO BID HPI Comments Details: 49-year-old lady with a history of an incarcerated umbilical hernia comes in for consideration. Patient reports that she has had the hernia for quite some time. She reports ?some days it is not so bad some days it really hurts. ? she denies any obstructive symptoms. She went to the ER recently for this problem but after a while left AMA without imaging. She denies any history of surgery in her abdomen or instrumentation to the region. 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 [facility] Medical History Psychogenic nonepileptic seizure History of shingles Migraine Family History (Updated 04/25/25 @ 13:20 by PEYMAN Gilbert) Mother Cervical cancer Social History (Updated 04/25/25 @ 13:21 by PEYMAN Gilbert) Household Members: Friend(s) Household Members Other:: Sabine Cowart Alcohol intake: current Alcohol intake frequency: a few times a week Alcohol type: hard liquor Patient Tobacco Use Status: Current everyday Tobacco user Tobacco use type: Cigarette Cigarettes Per Day: 10 Review of Systems Const All systems reviewed & are unremarkable except as noted in HPI and below Physical Exam Vital Signs: Last Vital Signs Pulse 74 04/25/25 13:11 BP 165/83 H 04/25/25 13:11 BMI result Body Mass Index 19.6 Const General: cooperative, healthy appearing and comfortable HEENT Head: Yes normal to inspection Eyes Pupils: Equal, round and reactive pupils present EOM: EOMs intact bilaterally Neck Neck: Yes normal visual inspection Resp Effort & Inspection: normal respiratory effort and able to speak in complete sentences Cardio Rate: regular rate Rhythm: regular rhythm GI Other: Soft scalp nontender nondistended. 2-3 cm umbilical mass tender to palpation not reducible no corresponding scar. Neuro Cranial nerves: Yes Equal, round and reactive pupils present Assessment & Plan Assessment & Plan (1) Incarcerated ventral hernia: Code(s): K43.6 - Other and unspecified ventral hernia with obstruction, without gangrene Category: Medical Plan: I described to the patient in the nature of laparoscopic possible open ventral hernia repair with mesh. I reviewed with her in detail the risks that are invol ashley. These include but are not limited to the risk of bleeding the risks infection risk of damage to surrounding structures both recognized and unrecognized at the time of surgery the risk of conversion to an open procedure the risk of hernia recurrence risk of chronic pain the risk of unsightly scarring and the risk of abnormal appearing umbilical contouring were all reviewed with her in detail. She told me that she understood. She told me that she carefully considered her options. She told me that she understood and accepted the risks of surgery and lastly indicated that she wished to proceed with operative intervention. Coding Level of Care Code New Pt Level 3 (27027) Diagnoses Incarcerated ventral hernia K43.6 Time Spent (min) 30 Comment Time spent in patient visit, record review and coordination of care
--- OUTSIDE RECORDS SUMMARY | 2025-04-25 18:42 | XMS_ITS | Patient Health Record ---
Author Organization [facility] Address [address] [address] Care Team Providers Care Wireless Engineer Name Role Phone Junaiddallin Brooke Primary Care Provider Unavailab DEION Fiore Unavailable [phone] Sherry Khan Unavailable [phone] Allergies Allergen (clinical drug ingredient) Drug/Non Drug Allergy documented on EMR Reaction Allergy Type Onset Date Status penicillamine Penicillamine Unknown Drug Allergy Active Reason For [...] Once a day; Duration: 30 days Active ARIPiprazole 5 MG 1 tablet Orally Once a day; Duration: 30 days Active clonazePAM 0.5 MG 1 tablet Orally Once a day as needed for anxiety; Duration: 90 days 03/20/2025 Active Nayzilam 5 MG/0.1ML 1 spray as needed Na hugo Twice a day Active Ibuprofen 600 MG 1 tablet with food o r milk as needed Orally Three times a day Active Keppra XR 750 MG 1 tablet Orally twic e a day Active lamoTRIgine ER 250 MG 1 tablet Orally tw ice a day Active Amitriptyline HCl 10 MG 1 tablet at bedt mitali Orally Once a day; Duration: 30 days 04/21/2025 Active Social History Tobacco Use: Social History [...] Problem Status W/U Status Risk Notes Problem Generalized anxiety disorder (61185101) Generalized anxiety disorder (F41.1) Active confirmed Problem Migraine (70828528) Migraine (G43.909) Active confirmed Problem Moderate recurrent major depression (92818263) Moderate episode of recurrent major depressive disorder (F33.1) Active confirmed Problem Insomnia disorder related to another mental disorder (23744693) Psychophysiological insomnia (F51.04) Active confirmed Problem Panic disorder (687188719) Panic disorder [episodic paroxysmal anxiety] (F41.0) Active confirmed Problem Dissociative convulsions (disorder) (855999930) Psychogenic nonepileptic seizure (F44.5) Active confirmed Problem Bipolar affective disorder, current episode hypomanic (5974878941) Bipolar affective disorder, current episode hypomanic (F31.0) Active confirmed Vital Signs Heart Rate 106 /min 04/21/2025 Blood pressure diastolic 97 mm Hg 04/21/2025 Height 65 in 04/21/2025 Blood pressure systolic 153 mm Hg 04/21/2025 Weight 113 lbs 04/21/2025 BMI 18.8 kg/m2 04/21/2025 Encounters Encounter Location Date Provider Diagnosis [email or web address] [address] 05/07/2024 DEION DEGRUSH Generalized anxiety disorder F41.1 ; Psychogenic nonepileptic seizure F44.5 ; Panic disorder [episodic paroxysmal anxiety] F41.0 ; Psychophysiological insomnia F51.04 and Bipolar affective disorder, current episode hypomanic F31.0 [email or web address] [address] [address] 07/12/2024 DEION DEGPAUL Generalized anxiety disorder F41.1 ; Psychogenic nonepileptic seizure F44.5 ; Panic disorder [episodic paroxysmal anxiety] F41.0 ; Psychophysiological insomnia F51.04 and Bipolar affective disorder, current episode hypomanic F31.0 [facility] [address] [address] 08/19/2024 DEION DEGRUSH Generalized anxiety disorder F41.1 ; Psychogenic nonepileptic seizure F44.5 ; Panic disorder [episodic paroxysmal anxiety] F41.0 ; Psychophysiological insomnia F51.04 and Bipolar affective disorder, current episode hypomanic F31.0 [facility] [address] [address] 11/18/2024 DEION DEGRUSH Generalized anxiety disorder F41.1 ; Psychogenic nonepileptic seizure F44.5 ; Panic disorder [episodic paroxysmal anxiety] F41.0 ; Psychophysiological insomnia F51.04 and Bipolar affective disorder, current episode hypomanic F31.0 [facility] [address] [address] 12/27/2024 Sherry Khan Generalized anxiety disorder F41.1 ; Migraine G43.909 ; Psychogenic nonepileptic seizure F44.5 ; Panic disorder [episodic paroxysmal anxiety] F41.0 ; Psychophysiological insomnia F51.04 and Bipolar affective disorder, current episode hypomanic F31.0 [facility] [address] [address] 01/24/2025 Sherryraphael Diasprebrayden Generalized anxiety disorder F41.1 ; Migraine G43.909 ; Psychogenic nonepileptic seizure F44.5 ; Panic disorder [episodic paroxysmal anxiety] F41.0 ; Psychophysiological insomnia F51.04 and Bipolar affective disorder, current episode hypomanic F31.0 [facility] [address] [address] 04/21/2025 Sherry Pampreen Generalized anxiety disorder F41.1 ; Migraine G43.909 ; Psychogenic nonepileptic seizure F44.5 ; Panic disorder [episodic paroxysmal anxiety] F41.0 ; Psychophysiological insomnia F51.04 and Bipolar affective disorder, current episode hypomanic F31.0 [facility], [address] [address] 04/25/2024 [facility], [address] [address] 05/27/2024 [facility], [address] [address] 08/16/2024 [facility], [address] [address] 08/19/2024 [facility], [address] [address] 11/18/2024 [facility], [address] [address] 11/29/2024 [facility], [address] [address] 12/27/2024 [facility], [address] [address] 04/25/2024 [facility], [address] [address] 04/25/2024 [facility], [address] [address] 07/21/2024 [facility], [address] [address] 07/23/2024 [facility], [address] [address] 10/15/2024 [facility], [address] [address] 11/19/2024 [facility], [address] [address] 11/19/2024 [facility], [address] [address] 11/21/[address] [address] 11/28/[address] [address] 12/10/[address] [address] 12/18/[address] [address] 12/19/[address] [address] 12/31/[address] [address] 01/01/[address] [address] 01/01/[address] [address] 03/24/[address] [address] 04/18/[address] [address] 04/23/[address] [address] 04/23/[address] [address] 04/25/[address] [address] 04/25/2025 [facility] Encounter Date Diagnosis (ICD Code) Assessment [...] ic, currently being treated for epilepsy in [facility], and in treatment wiht myself for bipolar [...] ic, currently being treated for epilepsy in [facility], and in treatment wiht myself for bipolar [...] ic, currently being treated for epilepsy in [facility], and in treatment wiht myself for bipolar [...] ic, currently being treated for epilepsy in [facility], and in treatment wiht myself for bipolar [...] ic, currently being treated for epilepsy in [facility], and in treatment wiht myself for bipolar [...] SNRI may be beneficial from both a depression/anxiet y and migraine prevention standpoint, however would be [...] ic, currently being treated for epilepsy in [facility], and in treatment wiht myself for bipolar [...] she will try. Will continue to monitor. 04/21/2025 Generalized anxiety disorder (ICD-10 - F41.1) [...] getting treatment at an epilepsy center in [place], will defer to their treatment plan. 12/27/2024 Psychogenic nonepileptic seizure (ICD-10 - F44.5) She is getting treatment at an epilepsy center in [place], will defer to their treatment plan. She does report having self-discontinued Keppra recently after running out of refills. Advise she speak to provider in [place] about whether or not she should continue this medication and for refills. Denzel is a 49 yo woman with 20+ years of episodes that from the data that is available to me appear to be non-epilept ic, currently being treated for epilepsy in [facility], and in treatment wiht myself for bipolar disorder and anxiety. 01/24/2025 Psychogenic nonepileptic seizure (ICD-10 - F44.5) She is getting treatment at an epilepsy center in [place], will defer to their treatment plan. 11/18/2024 Psychogenic nonepileptic seizure (ICD-10 - F44.5) Lamotrigine XR 125mg twice daily (take 1 tab of 25mg and 1 tab of 100mg twice daily) She is getting treatment at an epilepsy center in [place], will defer to their treatment plan Denzel is a 49 yo woman with 20+ years of episodes that from the data that is available to me appear to be non-epilept ic, currently being treated for epilepsy in [facility], and in treatment wiht myself for bipolar disorder and anxiety. 08/19/2024 Psychogenic nonepileptic seizure (ICD-10 - F44.5) Lamotrigine XR 125mg twice daily (take 1 tab of 25mg and 1 tab of 100mg twice daily) She is getting treatment at an [place] center [place], will defer to their treatment plan Denzel is a 49 yo woman with 20+ years of episodes that from the data that is available to me appear to be non-epilept ic, currently being treated for epilepsy in [facility], and in treatment wiht myself for bipolar disorder and anxiety. 07/12/2024 Psychogenic nonepileptic seizure (ICD-10 - F44.5) Lamotrigine XR 125mg twice daily (take 1 tab of 25mg and 1 tab of 100mg twice daily) She is getting treatment at an [place] center [place], will defer to their treatment plan Denzel is a 48 yo woman with 20+ years of episodes that from the data that is available to me appear to be non-epilept ic, currently being treated for epilepsy in [facility], and in treatment wiht myself for bipolar disorder and anxiety. 05/07/2024 Psychogenic nonepileptic seizure (ICD-10 - F44.5) Lamotrigine XR 125mg twice daily (take 1 tab of 25mg and 1 tab of 100mg twice daily) She is getting treatment [place], will defer to their treatment plan Denzel is a 48 yo woman with 20+ years of episodes that from the data that is available to me appear to be non-epilept ic, currently being treated for epilepsy in [facility], and in treatment wiht myself for bipolar disorder and anxiety. 05/07/2024 Panic disorder [episodic paroxysmal anxiety] (ICD-10 - F41.0) Denzel is a 48 yo woman with 20+ years of episodes that from the data that is available to me appear to be non-epilept ic, currently being treated for epilepsy in [facility], and in treatment wiht myself for bipolar disorder and anxiety. 07/12/2024 Panic disorder [episodic paroxysmal anxiety] (ICD-10 - F41.0) Denzel is a 48 yo woman with 20+ years of episodes that from the data that is available to me appear to be non-epilept ic, currently being treated for epilepsy in [facility], and in treatment wiht myself for bipolar disorder and anxiety. 08/19/2024 Panic disorder [episodic paroxysmal anxiety] (ICD-10 - F41.0) Denzel is a 49 yo woman with 20+ years of episodes that from the data that is available to me appear to be non-epilept ic, currently being treated for epilepsy in [facility], and in treatment wiht myself for bipolar disorder and anxiety. 11/18/2024 Panic disorder [episodic paroxysmal anxiety] (ICD-10 - F41.0) Denzel is a 49 yo woman with 20+ years of episodes that from the data that is available to me appear to be non-epilept ic, currently being treated for epilepsy in [facility], and in treatment wiht myself for bipolar disorder and anxiety. 12/27/2024 Panic disorder [episodic paroxysmal anxiety] (ICD-10 - F41.0) Denzel is a 49 yo woman with 20+ years of episodes that from the data that is available to me appear to be non-epilept ic, currently being treated for epilepsy in [facility], and in treatment wiht myself for bipolar disorder and anxiety. 01/24/2025 Panic disorder [episodic paroxysmal anxiety] (ICD-10 - F41.0) 04/21/2025 Panic disorder [episodic paroxysmal anxiety] (ICD-10 - F41.0) 04/21/2025 Psychophysiological insomnia (ICD-10 - F51.04) Patient reported this patient has recent increase in insomnia. As mentioned above plan to trial low-dose amitriptyline. She is no longer using trazodone as she does not find benefit from this. 01/24/2025 Psychophysiological insomnia (ICD-10 - F51.04) She will continue with trazodone as needed for insomnia. 11/18/2024 Psychophysiological insomnia (ICD-10 - F51.04) Denzel is a 49 yo woman with 20+ years of episodes that from the data that is available to me appear to be non-epilept ic, currently being treated for epilepsy in [facility], and in treatment wiht myself for bipolar [...] ic, currently being treated for epilepsy in [facility], and in treatment wiht myself for bipolar disorder and anxiety. 08/19/2024 Psychophysiological insomnia (ICD-10 - F51.04) Denzel is a 49 yo woman with 20+ years of episodes that from the data that is available to me appear to be non-epilept ic, currently being treated for epilepsy in [facility], and in treatment wiht myself for bipolar disorder and anxiety. 05/07/2024 Psychophysiological insomnia (ICD-10 - F51.04) Denzel is a 48 yo woman with 20+ years of episodes that from the data that is available to me appear to be non-epilept ic, currently being treated for epilepsy in [facility], and in treatment wiht myself for bipolar disorder and anxiety. 07/12/2024 Psychophysiological insomnia (ICD-10 - F51.04) Denzel is a 48 yo woman with 20+ years of episodes that from the data that is available to me appear to be non-epilept ic, currently being treated for epilepsy in [facility], and in treatment wi myself for bipolar disorder and anxiety. 05/07/2024 Bipolar affective disorder, current episode hypomanic (ICD-10 - F31.0) INCREASE Olanzapine (zyprexa)- 10mg once daily at bedtime Denzel has tried a number of different mood stabilizer and antidepressant meds this past year, but has not found stability (vraylar viibryd, seroquel). Discussed due to her current state of distress she should INCREASE olanzapine, as it will also help with sleep for her- Discussed risks, benefits, alternatives, and she can participate in informed consent. Denzel is a 48 yo woman with 20+ years of episodes that from the data that is available to me appear to be non-epilept ic, currently being treated for epilepsy in [facility], and in treatment wi myself for bipolar disorder and anxiety. 08/19/2024 Bipolar affective disorder, current episode hypomanic (ICD-10 - F31.0) continue seroquel 100mg, can go up to 150mg as needed for depressed mood Denzel has tried a number of different mood stabilizer and antidepressant meds this past year, but has not found stability (vraylar viibryd, olanzapine, seroquel). Will go back to seroquel as she noted it was the best of those options. Discussed other mood stabilizers but cannot use oxcarb or carbamazepine due to med interactions. Denzel is a 49 yo woman with 20+ years of episodes that from the data that is available to me appear to be non-epilept ic, currently being treated for epilepsy in [facility], and in treatment wi myself for bipolar disorder and anxiety. 07/12/2024 [...] ic, currently being treated for epilepsy in [facility], and in treatment wiht myself for bipolar [...] start low dose and titrate up as appropriate.Discu ssed risks, benefits and alternatives and she is able to participate in informed consent. Other options- depakote (interaction with lamotrigine) Denzel is a 49 yo woman with 20+ years of episodes that from the data that is available to me appear to be non-epilept ic, currently being treated for epilepsy in [facility], and in treatment wiht myself for bipolar [...] ic, currently being treated for epilepsy in [facility], and in treatment wiht myself for bipolar [...] 1 to 3 months, sooner as needed. 04/21/2025 Bipolar affective disorder, current episode hypomanic [...] Plan to follow-up again in 1 month. 05/07/2024 Other Neuro, I spent a total of 30 minutes on the present encounter, which includes preparing for the encounter, obtaining history, performing examination, reviewing diagnostic data, ordering medications/testi ng/procedures and other care coordination, referring to and communicating with other health animal care provider, documenting clinical information in the record, counseling, [...] sentence. If any questions, please contact the ENERGY AND CONSERVATION TECHNICIAN office at [phone]. Denzel is a 48 yo woman with 20+ years of episodes that from the data that is available to me appear to be non-epilept ic, currently being treated for epilepsy in [facility], and in treatment wiht myself for bipolar disorder and anxiety. 07/12/2024 Other Neuro, I spent a total of 30 minutes on the present encounter, which includes preparing for the encounter, obtaining history, performing examination, reviewing diagnostic data, ordering medications/testi ng/procedures and other care coordination, referring to and communicating with other health animal care provider, documenting clinical information in the record, counseling, [...] sentence. If any questions, please contact the ENERGY AND CONSERVATION TECHNICIAN office at [phone]. Denzel is a 48 yo woman with 20+ years of episodes that from the data that is available to me appear to be non-epilept ic, currently being treated for epilepsy in [facility], and in treatment wiht myself for bipolar disorder and anxiety. 08/19/2024 Other Neuro, I spent a total of 30 minutes on the present encounter, which includes preparing for the encounter, obtaining history, performing examination, reviewing diagnostic data, ordering medications/testi ng/procedures and other care coordination, referring to and communicating with other health animal care provider, documenting clinical information in the record, counseling, [...] sentence. If any questions, please contact the ENERGY AND CONSERVATION TECHNICIAN office at [phone]. Denzel is a 49 yo woman with 20+ years of episodes that from the data that is available to me appear to be non-epilept ic, currently being treated for epilepsy in [facility], and in treatment wiht myself for bipolar disorder and anxiety. 11/18/2024 Other Neuro, I spent a total of 30 minutes on the present encounter, which includes preparing for the encounter, obtaining history, performing examination, reviewing diagnostic data, ordering medications/testi ng/procedures and other care coordination, referring to and communicating with other health animal care provider, documenting clinical information in the record, counseling, [...] sentence. If any questions, please contact the ENERGY AND CONSERVATION TECHNICIAN office at [phone]. Denzel is a 49 yo woman with 20+ years of episodes that from the data that is available to me appear to be non-epilept ic, currently being treated for epilepsy in [facility], and in treatment wiht myself for bipolar disorder and anxiety. 01/24/2025 Other Visit conducte d using telemedicine technology including audio and video and was requested by patient. Patient was at home in [place] during visit. Plan Of Treatment Next Appt Details Provider Name:Sherry harrison, 05/16/2025 10:30:00 AM, [address] [facility], [address], [place], [address], Insurance Providers Payer Name Payer Address Payer Phone Subscriber Number Group Number Insured Name Patient Relationship to Insured Coverage Start Date Coverage End Date [facility] [address] [place] [address] [id number] Denzel Newman Self - patient is the insured Medical (General) History Medical History History ICD Code Seizure R56.9 COVID-19 U07.1 Surgical History Surgery Date(Month/Year) Hospitalization History Reason Date(Month/Year) in patient EEG in patient EEG
--- OUTSIDE RECORDS SUMMARY | 2025-04-25 18:42 | XMS_ITS | Clinical Summary ---
Author Organization [facility] Address [address] [place] [id number] Care Team Providers Care Forestry Technician Name Role Phone Provider, Generic Primary Care Provider Natalia Martin Aaron MD Unavailable [phone] Allergies Active Allergy Reactions Criticality Noted Date Comments Fluoxetine Other (See Comments) 06/28/2022 Penicillins Nausea Only,GI Intolerance/Nausea/Vomiting Low 12/24/2019 Medications Tylenol 325 MG tablet TAKE 2 TABLETS BY MOUTH EVERY 6 HOURS NEEDED FOR PAIN . DO NOT EXCEED 4000MG PER 24 HOURS 2 Active busPIRone (BUSPAR) 10 MG tablet Take 1 tablet (10 mg total) by mouth 2 (two) times a day. Active clonazePAM (KlonoPIN) 0.5 MG tablet Take 1 tablet (0.5 mg total) by mouth as needed. 2 Active ibuprofen (MOTRIN) 600 MG tablet Take 1 tablet (600 mg total) by mouth as needed. 2 Active norethindrone (AYGESTIN) 5 MG tablet Take 1 tablet (5 mg total) by mouth daily. 2 Active QUEtiapine (SEROquel) 100 MG tablet Take 1 tablet (100 mg total) by mouth nightly. 3 Active cariprazine (Vraylar) 1.5 MG caspule Take 2 capsules (3 mg total) by mouth daily. 4 Active levETIRAcetam (KEPPRA) 500 MG tabletIndicatio ns:Seizure-like activity (HCC) Take 1 tablet am 1 tablet pm x 7D; 1 tablet am 2 tablets pm x 7D; then 2 tablets am 2 tablets pm 120 tablet 3 4 Active Additional Information Patient taking differently: 1,000 mg Oral 2 times daily, Take 1 tablet am 1 tablet pm x 7D; 1 tablet am 2 tablets pm x 7D; then 2 tablets am 2 tablets pm, Reported on 01/05/2024 levETIRAcetam (KEPPRA XR) 750 MG 24 hr tabletIndicatio ns:Seizure (HCC) Take 2 tablets by mouth once daily 180 tablet 3 5 Active lamoTRIgine ER 250 MG Tablet SR 24 hrIndications:S eizure-like activity (HCC) Take 250 mg by mouth nightly. 90 tablet 3 5 Active Active Problems Problem Noted Date Diagnosed Date Seizure 10/31/2022 Seizure-like activity 10/31/2022 Convulsions 06/28/2022 Family History Medical History Relation Name Comments Anxiety disorder Brother Benjamin Depression Brother Benjamin Mental illness Brother Benjamin Substance Abuse Brother Benjamin Asthma Father Benjamin Heart attack Maternal Grandfather Chris Diabetes Maternal Grandmother Eri Lung cancer Paternal Aunt Ling Relation Name Status Comments Brother Benjamin Father Benjamin Maternal Grandfather Chris Maternal Grandmother Eri Paternal Aunt Ling Social History Tobacco Use Types Packs/Day Years Used Date Smoking Tobacco: Every Day Cigarettes Smokeless Tobacco: Never Tobacco Cessation:Ready to Q uit: Not Asked; Counseling Given: Not Answered Alcohol Use Standard Drinks/Week Comments Yes 40 (1 standard drink = 0.6 oz pu re alcohol) Overall Financial Resource Strain (CARDIA) Answe r Date Recorded How hard is it for you to pa y for the very basics like food, housing, medical care, and heating? Not very hard 10/31/2022 Hunger Vital Sign Answer Date Recorded Within the past 12 months, y ou worried that your food would run out before you got the money to buy more. Never true 11/01/19 23 Within the past 12 months, t he food you bought just didn't last and you didn't have money to get more. Never true 10/31/2022 PRAPARE - Transportation Answer Date Re corded In the past 12 months, has l ack of transportation kept you from medical appointments or from getting medications? No 10/13 In the past 12 months, has l ack of transportation kept you from meetings, work, or from getting things needed for daily living? No 10/31/2022 Housing Stability Vital Sign Answer Alex e Recorded In the last 12 months, was t here a time when you were not able to pay the mortgage or rent on time? No 10/31/2022 In the last 12 months, how many places have you lived? 1 10/31/2022 In the last 12 months, was t here a time when you did not have a steady place to sleep or slept in a senior care (including now)? No 10/31/2022 Comments Unknown Sex and Gender Information Value Date Recorded Sex Assigned at Female 10/31/2022 11:55 AM EDT Legal Sex Female 7:37 AM EDT Gender Identity Female 10/31/2022 11:55 AM EDT Sexual Orientation Heterosexual (straight) 10/31 11:55 AM EDT Last Filed Vital Signs Vital Sign Reading Time Taken Comments Blood Pressure 137/81 01/05/2024 9:39 AM EDT Pulse 103 01/05/2024 9:39 AM EDT Temperature 35.7 C (96.3 F) 11/04/2022 7:58 AM EDT Respiratory Rate 18 01/05/2024 9:39 AM EDT Oxygen Saturation 98% 01/05/2024 9:39 AM EDT Inhaled Oxygen Concentration - - Weight 52.2 kg (115 lb) 01/05/2024 9:39 AM EDT Height 165.1 cm (5' 5 ) 01/05/2024 9:39 AM EDT Body Mass Index 19.14 01/05/2024 9:39 AM EDT Plan of Treatment Health Maintenance Due Date Last Done Comments Hepatitis C Virus Screening 1974 HIV Screening 08/06/1987 DTaP/Tdap/Td Vaccines (1 - Tdap) 1993 Hepatitis B Vaccines (1 of 3 - 19+ 3-dose series) 1993 Pneumococcal Vaccines 50+ (1 of 2 - PCV) 1993 Pap Smear (Ages 21-65) 08/06/1995 Mammogram 2014 Colonoscopy 08/06/2019 Zoster (Shingles) Vaccine (1 of 2) 2024 Influenza Vaccine 12/13/2024 COVID-19 Vaccine (3 - 2024-26 season) 2025, 12/13/2020 RSV Vaccine 50 years and old er and Patients (1 - 1-dose 75+ series) 2049 Advance Directives * Full Code (Latest Code Status on File) Date Activated Date Inactivated Comments 10/31/2022 1:14 PM Care Teams Forestry Technician Relationship Specialty Start Date End Date Provider, Generic PCP - General 03/08/22 Martin Tovar MD [address] [place] [address] PCP - Internal Medicine 06/28/22
== END 2025-04-25 13:45 | disposition home or self-care (01) ==
LOC: HO.HGS 13:04
PROVIDERS: PCP Internal Medicine; Visit Provider Surgery
DX: K43.6 Other and unspecified ventral hernia with obstruction, without gangrene (principal)
CPT/HCPCS: 99203